=== PATIENT | male | born 1955 | race Caucasian/White ===

== ENCOUNTER 2017-07-09 14:06 | Inpatient (IN) | payer MEDICARE ==
[~2017-07-09 14:06] MED LIST: ISOVUE-370 76%-LOCM 1 ML ONE
--- NOTE | 2017-07-09 14:21 | CT ---
CT BRAIN: Date: 07/09/17 HISTORY: Slurred speech. FINDINGS: Noncontrast enhanced CT images of the brain obtained. The brain is unremarkable. No evidence of intra cranial masses, hemorrhages, strokes, or contusions seen. Ventricles are of normal size. IMPRESSION: Normal CT brain. Findings discussed with Dr. Schulz at 1416 hours on 07/09/17. CODE CR. POS: [facility]
[2017-07-09 14:26] LABS: #Basophils 0.1 thou/uL (0.0-0.2); #Eosinphils 0.1 thou/uL (0.0-0.7); #Lymphocytes 3.1 thou/uL (1.20-3.40); #Monocytes 0.7 thou/uL (0.11-0.59); #Neutrophils 5.3 thou/uL (1.40-6.50); %Basophils 0.8 % (0.0-1.0); %Eosinophils 0.5 % (0.0-10.0); %Lymphocytes 33.7 % (21.0-51.0); %Monocytes 7.2 % (0.0-10.0); Hematocrit 44.2 % (42.0-52.0); Red Blood Cell (RBC) Count 4.98 mill/uL (4.70-6.10); White Blood Cell (WBC) Count 9.2 thou/uL (4.8-10.8)
[2017-07-09 14:32] LABS: Prothrombin Time 20.5 SEC (12.0-14.7)
[2017-07-09 14:33] LABS: PTT 38.3 SEC (22.9-36.1)
[2017-07-09 14:38] LABS: ALT (SGPT) 9 U/L (8-55); AST (SGOT) 10 U/L (5-34); Alkaline Phosphatase 61 U/L (40-150); Anion Gap 13 mmol/L (10-20); BUN (Urea Nitrogen) 8 mg/dL (8.4-25.7); Bilirubin, Total 0.2 mg/dL (0.2-1.2); Calc. Creatinine Clearance 0 mL/min (70-130); Calcium 9.8 mg/dL (7.8-10.44); Carbon Dioxide 25 mmol/L (23-31); Chloride 104 mmol/L (98-107); Estimated GFR-MDRD Greater than 90; Globulin 2.8 g/dL (2.4-3.5); Protein, Total 6.8 g/dL (5.8-8.1)
[2017-07-09 14:42] LABS: Troponin I 0.012 ng/mL (< 0.028)
--- NOTE | 2017-07-09 15:00 | CT ---
CONTRAST ENHANCED CA CAROTID ARTERIES AND INTRACRANIAL CTA WITH BRAIN PERFUSION STUDY DATED 07/09/17. FINDINGS: Contrast-enhanced CTA is performed. Two-D and 3D reconstructed images performed on an independent 3D work station. The aortic arch demonstrates calcifications of the aorta. The right brachiocephalic artery is patent . The right and left subclavian arteries are patent. The right and left vertebral arteries are monteiro nt. The right and left common carotid arteries are patent. Some mild atherosclerotic plaque is seen in t he distal right and left CCA extending to the right and left ICA resulting in minimal approximately 1 5-20% bilateral ICA stenosis. More distally, the right and left internal carotid arteries are patent . Normal flow is seen in the STERLING, MCA, and BRIM PRESSER vessels. Brain perfusion imaging demonstrates no evidence of areas of increased mean transit time. No signifi cant evidence of brain perfusion abnormality seen. IMPRESSION: Normal CTA carotid, intracranial CTA, and brain perfusion evaluation. POS: [facility]
--- NOTE | 2017-07-09 16:51 | PDOC.EVN ---
Attending Addendum - Attending Addendum I personally evaluated the patient and discussed the management with Dr. Christensen. I agree with the History, Examination, Assessment and Plan documented in his H& P with any addition or exceptions noted below. Patient is 62 yo gentleman with HTN, PVD, and unspecified cardiomyopathy p/w difficulty with speech production and slurring of speech that began sometime this morning. His symptoms have improved somewhat, and he denies other focal neuro symptoms such as sensory loss, weakness, vertigo, headache. He has been admitted for possible TIA versus stroke. Patient had negative CT brain, and CTA with perfusion does not suggest area of decreased/absent perfusion. He is not a candidate due to AICD placement. He is typically on Xarelto. We will admit to stroke unit, consult stroke team, bedside swallow eval, and therapy consults. Consult Neurology as this is first episode of possible ischemic damage. Allow permissive HTN overnight but will continue Diltiazem due to his history of abormal heart rhythms. Will obtain labs to further risk stratify patient and adjust meds as necessary. Obtain echo and monitor on tele.
[2017-07-09] MEDS ORDERED: Ondansetron ODT 4 MG TAB PO PRN (16:59)
[2017-07-09] MEDS ORDERED: Acetaminophen 650 MG Suppository PR PRN (16:59)
[2017-07-09] MEDS ORDERED: Acetaminophen 325 MG TAB PO PRN (16:59)
[2017-07-09] MEDS ORDERED: Labetalol HCl 100 MG/20 ML VIAL SLOW IVP PRN (16:59)
[2017-07-09] MEDS ORDERED: Ondansetron HCl/PF 4 MG/2 ML Vial IVP PRN (16:59)
[2017-07-09] MEDS ORDERED: Calcium Carbonate 500 MG ChewTAB PO PRN (16:59)
[2017-07-09] MEDS ORDERED: hydrALAZINE 20 MG/ML VIAL SLOW IVP PRN (16:59)
[2017-07-09 17:36] VITALS: BMI 23.0
--- NOTE | 2017-07-09 18:30 | PDOC.PN ---
- Subjective Encounter Start Date: 07/09/17 Encounter Start Time: 18:28 Subjective: seen and examined-no new complaint - Objective Vital Signs & Weight: Vital Signs (12 hours) Temp Pulse Resp BP Pulse Ox 07/09/17 17:00 97.9 F 75 18 158/80 H 98 Weight Weight 165 lb 5 oz Result Diagrams: 07/09/17 14:14 07/09/17 14:14 Phys Exam - Physical Examination Constitutional: NAD HEENT: PERRLA, moist MMs, sclera anicteric, TM's clear, oral pharynx no lesions Neck: no nodes, no JVD, supple, full ROM Respiratory: no wheezing, no rales, no rhonchi Cardiovascular: RRR, no significant murmur, no rub Gastrointestinal: soft, non-tender, no distention, positive bowel sounds Dx/Plan (1) TIA (transient ischemic attack) Status: Acute (2) Hypertension Code(s): I10 - ESSENTIAL (PRIMARY) HYPERTENSION Status: Acute (3) S/P implantation of automatic cardioverter/defibrillator (AICD) Code(s): Z95.810 - PRESENCE OF AUTOMATIC (IMPLANTABLE) CARDIAC DEFIBRILLATOR Status: Acute - Plan PT/OT, social media content manager follow up Echo -: Awaiting Neurology input -: Rehab screening in progress * .
[2017-07-09] MEDS: Aspirin 81 mg Enteric Coated Tablet PO SCH ×2 (19:20→20:54)
[2017-07-09] MEDS: Gabapentin 300 MG CAP PO SCH (20:55)
[2017-07-09] MEDS: HYDROcodone/Acetaminophen 10/325 mg Tablet PO PRN (20:56)
[2017-07-09] MEDS ORDERED: Atorvastatin Calcium 10 MG TAB PO SCH (21:00)
[2017-07-09] MEDS ORDERED: FLU VACC QS2017-18 36 mo. & older 0.5 ML SYRINGE IM ONE (21:00)
[2017-07-09] MEDS ORDERED: Temazepam 15 MG CAP PO SCH (21:00)
[2017-07-10 05:33] LABS: Anion Gap 12 mmol/L (10-20); BUN (Urea Nitrogen) 9 mg/dL (8.4-25.7); Calc. Creatinine Clearance 98 mL/min (70-130); Calcium 9.7 mg/dL (7.8-10.44); Carbon Dioxide 28 mmol/L (23-31); Chloride 103 mmol/L (98-107); Cholesterol 127 mg/dl (< 200 Desired); Estimated GFR-MDRD Greater than 90; LDL Cholesterol, Calculated 71 mg/dL
--- NOTE | 2017-07-10 06:05 | HP-2 ---
CODE STATUS: Full. PRIMARY CARE PHYSICIAN: Katja marcus. ATTENDING PHYSICIAN: Dr. Blanton. RESIDENT: Dr. Christensen. HISTORIAN: The and patient. CHIEF COMPLAINT: Slurred speech and difficulty finding speech. HISTORY OF PRESENT ILLNESS: This is a 62-year-old male that came in with a chief complaint mainly by having slurred speech and not been able to find words. He said he was on his way to the cardiology appointment around 10:00. When he was talking to his on the phone, his noted slurred speech. 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 He came home around 12:31 and could not find words, could not speak. This time, they called the ambulance and at that time they sent him here to the ER. He denies any chest pain, shortness of breath, dizziness, headaches, changes in vision, changes in hearing, any numbness, tingling, weakness in the arms, face or legs. His said she called the pets salesperson and talked to the nurse. She said she did not notice anything and talked to the doctor and thought that he was a little bit slow talking, but did not notice anything too abnormal. The only other thing he says the last couple of weeks he felt dizzy. He has had an echo 6 months ago with an ejection fraction of 25%. He denied any fever, chills, recent illness or any recent like infection. On asking the how he was doing here in the ER when I saw him, she said that his speech drastically improved, but thought it was still maybe a little slow and a little slurred. He was able to form sentences. REVIEW OF SYSTEMS: All review of systems not listed in the HPI, otherwise negative at this time. PAST MEDICAL HISTORY: Cardiomyopathy, peripheral vascular disease, history of atrial fibrillation with an automatic implantable cardioverter-defibrillator and hypertension. PAST SURGICAL HISTORY: He has had PTIA, fem-pops, and had a left leg amputation. ALLERGIES: MORPHINE. MEDICATIONS: 1. Diltiazem 90 mg 1 tab a day. 2. Diclofenac 75 mg 1 tab. 3. Prevacid 30 mg once a day. 4. KCl 20 mEq times once a day, 5. Furosemide 40 mg b.i.d. 6. Coreg 25 mg b.i.d. 7. Coreg 12.5 mg b.i.d 8. Neurontin 300 mg b.i.d. 9. Xarelto 20 mg. 10. Celexa 20 mg. 11. Simvastatin 40 mg 1-1/2 tabs. 12. Temazepam 30 mg. 13. Percocet 10/325. SOCIAL HISTORY: He quit 8 months ago, but smokes off and on 1 per day for over 40+ years. No alcohol use. No drug use. PHYSICAL EXAMINATION: VITAL SIGNS: His blood pressure is 144/86, pulse is 70 and respirations are 13. There, he did not have a temperature and pulse ox currently was 76.2 kilograms. GENERAL: He is alert and oriented x3, well-developed, well-nourished and appropriately interactive. EYES: PERRLA. Conjunctivae within normal limits. ENT: Oropharynx within normal limit. NECK: Supple. No lymphadenopathy, no thyromegaly, no bruits. CARDIOVASCULAR: Regular rate and rhythm. No murmurs, no gallops. Radial pulses palpated, but unable to palpate pedal pulse in his right leg. RESPIRATORY: He has normal breathing effort. No retractions, but has prominent rales and wheezes in all lobes bilaterally. SKIN: Warm and dry. No lesions noted. ABDOMEN: Soft and nontender to palpation. Bowel sounds in all 4 quadrants. No masses or distention. MUSCULOSKELETAL: Structure within normal limit. Muscle strength is 5/5 in his arms and his right leg. He has full range of motion. No musculoskeletal deficit noted. NEUROLOGIC: Only focal deficit noted. His speech is a little slurred and maybe a little slow. Sensation is within normal limits. Cranial nerves II-XII are grossly intact. PSYCHIATRIC: Appropriate. LABORATORY DATA: White blood cell count 9.2, hemoglobin 14.4 and hematocrit 44.2 and MCV 88.8. Glucose is 180, sodium was 138, potassium 3.8, chloride 104 , carbon dioxide 25, BUN was 8, creatinine was 0.84, glucose 106, calcium is 9.8 , total protein 6.9, albumin 4.0, direct bilirubin 0.2, total bilirubin 0.2, AST 10, ALT 9, alkaline phosphatase 61, PT was 20.5m INR was 1.7 and aPTT was 38.3. IMAGING DATA: Brain CT was normal. Brain CT of the head and neck with brain perfusion showed normal CTA carotid, no acute infarction, and brain perfusion evaluation was normal. ASSESSMENT AND PLAN: 1. Transient ischemic attack versus stroke. We will admit him to the stroke unit. We will consult stroke team and Neurology and we will follow Neurology's recommendations. We will allow permissive hypertension. He is not on a high dose statin. We want to increase his statin to high dose. We will start him on aspirin. We are holding the Xarelto to prevent any bleed risk. If he does have a stroke, we will keep him n.p.o. until Speech evaluates him and gets a swallow because of his slurred speech. We will get PT, OT, and speech to evaluate and treat him accordingly. We will also check B12, folate and TSH and I am going to check a fasting lipid panel. 2. Cardiomyopathy with a reported ejection fraction of 25%. We will repeat an echo. He has an automatic implantable cardioverter-defibrillator in place. 3. Hypertension. We will continue diltiazem, but hold the rest of his blood pressure medicines to allow for permissive hypertension at this time. 4. Peripheral vascular disease. We will increase his statin to a high dose statin as this will help as he is on aspirin. We will continue Xarelto after 24 hours once he is out of the bleed risk window with the transient ischemic attack. 5. Hx A.fib w/ AICD in place. Will continue his diltiazem for rate control. Currently being paced in normal rhythm. will place him on Tele monitoring. 6. Tobacco abuse. We will classification counselor him on quitting. 7. Deep venous thrombosis prophylaxis. We will put him on Lovenox. ARMANDD
[2017-07-10] MEDS: HYDROcodone/Acetaminophen 10/325 mg Tablet PO PRN (07:23)
[2017-07-10] MEDS ORDERED: Potassium Chloride 20 MEQ TAB PO SCH (08:00)
[2017-07-10 08:25] VITALS: TEMP 98
--- NOTE | 2017-07-10 08:39 | CON ---
DATE OF CONSULTATION: 07/10/2017 CONSULTING PHYSICIAN: [facility]. IMPRESSION: 1. Transient ischemic attack, on maximum medical therapy. 2. History of congestive heart failure with ejection fraction of 25%. 3. Peripheral vascular disease, status post left above knee amputation. 4. History of atrial fibrillation. 5. Hypertension. PLAN: 1. Continue anticoagulation and statin. 2. Patient can be discharged home. HISTORY OF PRESENT ILLNESS: Mr. Bryant is a 62-year-old gentleman with above-noted medical problems. 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 He cont inued to have symptoms and told his about it. She is a nurse, and she brought him into the hosp ital for evaluation. He had a CTA, which did not show any evidence of any major vessel stenosis. Th ere was no evidence of ischemia visible on CT scan. His symptoms resolved sometime following this; h e is uncertain as to the duration of his symptoms. There was no associated lateralized weakness or n umbness. PAST MEDICAL HISTORY: As listed above. ALLERGIES: MORPHINE. MEDICATIONS: List was reviewed. SOCIAL HISTORY: He is and he has no tobacco or alcohol use. FAMILY HISTORY: Noncontributory. REVIEW OF SYSTEMS: No complaint of headache, nausea, vomiting, vertigo, chest pain, shortness of matt ath. PHYSICAL EXAMINATION: VITAL SIGNS: Blood pressure 163/83, pulse 72, respirations 16, he is afebrile. HEENT: Pupils are equal, round, and reactive. Conjunctivae clear. Oropharynx clear. NECK: Supple. EXTREMITIES: No cyanosis. NEUROLOGIC EXAM: He is alert and appropriate. His speech is fluent and clear. His exam is nonfocal . IMAGING: Reviewed. SUMMARY: This is an elderly gentleman with transient ischemic attack symptoms. He has previously akhtar d aspirin added to his regimen and there were problems with excessive bruisability. He is at risk of falling secondary to having to walk on crutches. I do not think I would add aspirin at this point. He seems comfortable with this plan. I will be happy to follow up with him as needed.
--- NOTE | 2017-07-10 08:40 | PDOC.FM ---
- Subjective Subjective: Pt reports doing much better this morning. Only thing is overnight he had a brief episode where he had a hard time finding words. Nurse says it only lasted a few minutes. Other than that denies any other acute events. Denies any numbness or tingling. Denies any weakness. Denies any chest pain or SOB - Objective MAR Reviewed: Yes Vital Signs & Weight: Vital Signs (12 hours) Temp Pulse Resp BP Pulse Ox 07/10/17 07:20 98 F 75 18 157/78 H 96 07/10/17 03:40 98.3 F 72 16 163/83 H 95 07/09/17 23:33 97.4 F L 70 16 111/61 96 Weight Weight 74.984 kg I&O: 07/09/17 07/10/17 07/11/17 06:59 06:59 06:59 Intake Total 240 Output Total 400 Balance -160 Result Diagrams: 07/09/17 14:14 07/10/17 04:49 Radiology Reviewed by me: Yes Radiology: CT Head: Negative CTA Head and Neck w/ Brain Perfusion: No abnormality seen in ICA or no area of decreased perfusion in brain <Mitchell Christensen - Last Filed: 07/10/17 08:38> - Objective Vital Signs & Weight: Vital Signs (12 hours) Temp Pulse Pulse Pulse Resp BP BP 07/10/17 09:30 72 93 151/79 H 142/91 H 07/10/17 08:10 98 F 75 18 07/10/17 07:59 81 74 156/87 H 174/90 H 07/10/17 07:20 98 F 75 18 07/10/17 03:40 98.3 F 72 16 BP Pulse Ox 07/10/17 09:30 07/10/17 08:10 96 07/10/17 07:59 07/10/17 07:20 157/78 H 96 07/10/17 03:40 163/83 H 95 Weight Weight 74.984 kg I&O: 07/09/17 07/10/17 07/11/17 06:59 06:59 06:59 Intake Total 240 Output Total 400 Balance -160 Result Diagrams: 07/09/17 14:14 07/10/17 04:49 <Davi Blanton - Last Filed: 07/10/17 12:04> Phys Exam - Physical Examination HEENT: moist MMs, oral pharynx no lesions Neck: no nodes, no JVD, supple, full ROM Respiratory: no rhonchi, wheezing present Rales present Cardiovascular: RRR, no significant murmur, no rub Gastrointestinal: soft, positive bowel sounds Musculoskeletal: no edema, pulses present Neurological: non-focal, normal sensation, moves all 4 limbs Speech non slurred. no delay in finding words Lymphatic: no nodes Psychiatric: normal affect, A&O x 3 Skin: no rash, normal turgor, cap refill <2 seconds <Mitchell Christensen - Last Filed: 07/10/17 08:38> Dx/Plan (1) TIA (transient ischemic attack) Status: Acute (2) Paroxysmal A-fib Code(s): I48.0 - PAROXYSMAL ATRIAL FIBRILLATION Status: Acute (3) Cardiomyopathy Code(s): I42.9 - CARDIOMYOPATHY, UNSPECIFIED Status: Acute (4) PVD (peripheral vascular disease) Code(s): I73.9 - PERIPHERAL VASCULAR DISEASE, UNSPECIFIED Status: Acute (5) Hypertension Code(s): I10 - ESSENTIAL (PRIMARY) HYPERTENSION Status: Acute - Plan Plan: TIA vs Stroke -More likely TIA as sx's have resolved this morning. No abnormality seen on imaging. Can't get MRI due to pacemaker -Started on aspirin currently. Will restart xarelto on discharge. -Will increase statin dose as he was on low dose. -Folate borderline low. May need to supplement -FLP and TSH normal -Awaiting ECHO results today. -Speech consulted-will await assessment and recs hx A.fib W. AICD in place -On tele monitoring. Currently paced in 70. RRR -Will continue to monitor -Continue home meds Cardiomyopathy -Worked up with cardiology in [place]. -Will get ECHO today to have on records and assess for any abnormality PVD -Will restart xarelto on discharge. -Continue home meds -Increase dose of statin HTN -Allowed permissvie HTN yesterday. -Will restart medications this morning <Mitchell Christensen - Last Filed: 07/10/17 08:38> Attending Addendum - Attending Addendum I personally evaluated the patient and discussed the management with Dr. Christensen. I agree with the History, Examination, Assessment and Plan documented above with any addition or exceptions noted below. Patient with resolution of symptoms. Neuro has seen patient and ok with discharge on increased statin therapy. He will need neuro follow up in outpatient setting. His BP is stable and he feels well. Awaiting PT/OT recs and will likely discharge home later today. <Davi Blanton - Last Filed: 07/10/17 12:04>
[2017-07-10] MEDS: Gabapentin 300 MG CAP PO SCH (08:54)
[2017-07-10] MEDS ORDERED: Docusate 100 MG CAP PO SCH (09:00)
[2017-07-10] MEDS ORDERED: Carvedilol 25 MG TAB PO SCH (09:00)
[2017-07-10] MEDS ORDERED: Enoxaparin Sodium 30 MG/0.3 ML SYRINGE SC SCH (09:00)
[2017-07-10] MEDS ORDERED: Furosemide 40 MG TAB PO SCH (09:00)
[2017-07-10] MEDS ORDERED: Diltiazem HCl SR 90 mg Capsule PO SCH (09:00)
[2017-07-10] MEDS ORDERED: Citalopram 20 MG TAB PO SCH (09:00)
[2017-07-10] MEDS ORDERED: Multivitamin W/ Minerals 1 TAB PO SCH (09:00)
[2017-07-10 10:26] VITALS: BP 151/79
[2017-07-10] MEDS ORDERED: Atorvastatin Calcium 40 MG TAB PO SCH (21:00)
--- NOTE | 2017-07-11 01:37 | DIS-2 ---
DATE OF ADMISSION: 07/09/2017 DATE OF DISCHARGE: 07/10/2017 ATTENDING: Dr. Blanton. RESIDENT: Mitchell Christensen, PGY-1. CONSULTATIONS: Neurology, Dr. Jefferson Draper. He had a brain CT, which was normal brain CT. He had a head and neck CTA with brain perfusion, which showed normal CTA of the carotid intracranial CTA and brain perfusion evaluation. He also had an ec hocardiogram, which showed ejection fraction of 50%-55%, normal sized left atrium, left ventricle siz e is normal. Impaired relaxation compatible with diastolic dysfunction reversed E/A ratio and mild m itral regurgitation. Pacer wire visualized in right ventricle and no thrombus is noted in the cardia c chambers. PRIMARY DIAGNOSES: 1. Transient ischemic attack with dysarthria and slurred speech. 2. Cardiomyopathy with a new reported ejection fraction of 50%-55%, diastolic heart failure. 3. Hypertension. 4. Peripheral vascular disease. DISCONTINUED: No medicines were discontinued. DISCHARGE MEDICATIONS: Carvedilol 25 mg p.o. b.i.d., citalopram 20 mg p.o. daily, diclofenac 75 mg p .o. daily, diltiazem 90 mg p.o. daily, docusate sodium 100 mg p.o. daily, furosemide 40 mg p.o. b.i.d ., gabapentin 300 mg p.o. b.i.d., hydrocodone 2 mg p.o. q.i.d., lansoprazole 30 mg p.o. daily, Centr um Silver tablet one each p.o. daily, K-Dur 20 mEq p.o. daily, rivaroxaban 15 mg p.o. daily, simvasta tin 20 mg p.o. at bedtime, temazepam 30 mg p.o. at bedtime. BRIEF HOSPITAL COURSE: This is a 62-year-old male that yesterday came in around after 10:00 started having slurred speech, came home from a doctor's appointment on 07/19/2017, in which they did not not ice anything but could not speak, could not find his words in the speech. He came in, once he was se en in the ER, his symptoms were getting better, but his speech was still a little slow, still little slurred. He got a CT head, which was read above and a CTA with brain perfusion, which was read above . We could not get an MRI, as he has an ICD in place. He denied any numbness, tingling, weakness. Denied any other symptoms other than the speech. He would then get assessed by Speech Therapy, who w emi say that he was able to swallow with sort of diet and had no problems. He had PT and OT assessm ent, which was able to get up and move around. He would continue to improve in the next day, his spe ech was fine, was not slurred at all, but had to have no trouble finding words. We did get a repeat echo showed an ejection fraction improved at 50%-55%. We thought that maybe he needed to be on a hig her dose statin. We started him on high dose statin here, but after talking with him, there was a re ason why he was on the low-dose simvastatin. I told him to follow up with Cardiology and tell him th at it was recommended that maybe he get a higher dose of statin. During this time, we discharged him and diagnosed him with a CTA with TIA as symptoms then resolved told him to follow up with his cardi ologist and follow up with his primary care doctor. DISPOSITION: Stable. DISCHARGE INSTRUCTIONS: 1. Location: Home. 2. Activity: As tolerated. 3. Diet: Heart healthy diet. 4. Followup: We will need to follow up with primary care provider within 14 days for [facility] appointment will need to follow up with Neurology within a month just for followup.
== END 2017-07-10 14:00 | disposition home or self-care (01) | DRG 69 ==
LOC: ERS 14:06 → EDBD 16:05 → 2SE 16:05 → OBSVTOIN 16:59
PROVIDERS: ADMIT Student in an Organized Health Care Education/Training Program; ATTEND Student in an Organized Health Care Education/Training Program
DX: G45.9 Transient cerebral ischemic attack, unspecified (principal); I42.9 Cardiomyopathy, unspecified; I11.0 Hypertensive heart disease with heart failure; I50.9 Heart failure, unspecified; R47.81 Slurred speech; I73.9 Peripheral vascular disease, unspecified; Z95.810 Presence of automatic (implantable) cardiac defibrillator; F17.210 Nicotine dependence, cigarettes, uncomplicated
CPT/HCPCS: 0042T; 36415; 36416; 70450; 70496; 70498; 80048; 80053; 80061; 82553; 82607; 82746; 84443; 84484; 85025; 85610; 85730; 90471; 90682; 93005; 93306; G0008; G8978-GP-CI; G8979-GP-CI; G8980-GP-CI; G8987-GO-CH; G8988-GO-CH; G8989-GO-CH; G8996-GN-CH; G8997-GN-CH; J1650; Q2036

== ENCOUNTER 2017-10-12 17:48 | Emergency (ER) | payer MEDICARE ==
[2017-10-12] MEDS ORDERED: Fentanyl 100 MCG/2 ML VIAL ONE (19:41)
[2017-10-12] MEDS ORDERED: Bupivacaine 0.5% 10 ML VIAL ONE (19:49)
[2017-10-12] MEDS ORDERED: Lidocaine 1% (PF) 30 ML VIAL ONE (19:49)
[2017-10-12] MEDS ORDERED: HYDROmorphone 0.5 MG/0.5 ML SYRINGE ONE (21:05)
--- NOTE | 2017-10-12 21:10 | RAD ---
TWO VIEWS RIGHT ELBOW: History: Fall on right elbow with pain. FINDINGS: Two views of the right elbow shows a fracture of the olecranon of the proximal ulna with surrounding soft tissue swelling. A small elbow effusion is seen. No dislocation is present. IMPRESSION: Proximal olecranon fracture of the ulna. POS: [facility]
--- NOTE | 2017-10-12 21:14 | RAD ---
THREE VIEWS RIGHT SHOULDER: Comparison: None. History: Right shoulder and elbow pain after losing balance and falling on the right arm. FINDINGS: Three views of the right shoulder shows no evidence of acute fracture or dislocation. The visualized right thorax is unremarkable. Soft tissue swelling is seen. No degenerative changes are present. IMPRESSION: No evidence of acute osseous abnormality. POS: [facility]
[2017-10-12] MEDS ORDERED: HYDROcodone/Acetaminophen 5/325 mg Tablet ONE (22:11)
== END 2017-10-12 22:30 | disposition home or self-care (01) ==
LOC: ERS 17:48
DX: S52.021A Displaced fracture of olecranon process without intraarticular extension of right ulna, initial encounter for closed fracture (principal); E78.00 Pure hypercholesterolemia, unspecified; F32.9 Major depressive disorder, single episode, unspecified; Z87.891 Personal history of nicotine dependence; Z79.899 Other long term (current) drug therapy; W19.XXXA Unspecified fall, initial encounter
CPT/HCPCS: 20552; 24675; 96374; 96375; J1170; J2001; J3010; J3490

== ENCOUNTER 2017-10-15 12:24 | Outpatient (CLI) | payer MEDICARE ==
[2017-10-15 13:57] LABS: Hemoglobin 8.4 g/dL (14.0-18.0); Mean Corpuscular HGB CONC 31.1 g/dL (32.0-36.0); Mean Corpuscular Hemoglobin 25.8 pg (27.0-31.0); Mean Platelet Volume 7.3 fL (7.4-10.4); Platelet Count 329 thou/uL (130-400); RBC Distribution Width 16.6 % (11.5-14.5); Red Blood Cell (RBC) Count 3.25 mill/uL (4.70-6.10); White Blood Cell (WBC) Count 8.1 thou/uL (4.8-10.8)
[2017-10-15 14:15] LABS: Anion Gap 11 mmol/L (10-20); BUN (Urea Nitrogen) 17 mg/dL (8.4-25.7); Calc. Creatinine Clearance 0 mL/min (70-130); Calcium 8.9 mg/dL (7.8-10.44); Carbon Dioxide 24 mmol/L (23-31); Chloride 101 mmol/L (98-107); Estimated GFR-MDRD 39; Glucose 109 mg/dL (80-115); Potassium 4.4 mmol/L (3.5-5.1); Sodium 132 mmol/L (136-145)
[2017-10-15 14:21] LABS: INR-International Normal Ratio 1.1; PTT 33.8 SEC (22.9-36.1); Prothrombin Time 14.6 SEC (12.0-14.7)
--- NOTE | 2017-10-28 22:52 | EKG ---
Test Reason : Blood Pressure : / mmHG Vent. Rate : 070 BPM Atrial Rate : 070 BPM P-R Int : 184 ms QRS Dur : 134 ms QT Int : 454 ms P-R-T Axes : 112 -04 116 degrees QTc Int : 490 ms Poor data quality, interpretation may be adversely affected AV sequential or dual chamber electronic pacemaker When compared with ECG of 09-JUL-2017 14:52, No significant change was found Confirmed by Ofelia MARISCAL ([id number]) on 10/28/2017 10:52:09 PM Referred By: DHIRAJ Confirmed By:Ofelia MARISCAL
== END 2017-10-15 12:25 | disposition home or self-care (01) ==
LOC: LABBT 12:24
PROVIDERS: ATTEND Orthopaedic Surgery
DX: Z01.818 Encounter for other preprocedural examination (principal); S52.021A Displaced fracture of olecranon process without intraarticular extension of right ulna, initial encounter for closed fracture
CPT/HCPCS: 80048; 85027; 85610; 85730; 93005; 93010

== ENCOUNTER → 2017-10-16 | Day surgery (SDC) | payer MEDICARE ==
[2017-10-15 12:44] VITALS: BMI 24.4
[~2017-10-16] MED LIST changes: +Bupivacaine 0.25% HCL 30 ML VIAL ONE; +CEFAZOLIN/Water 2 GM/20 ML SYRINGE ONE; +Dexamethasone 20 MG/5 ML VIAL ONE; +Fentanyl 100 MCG/2 ML VIAL ONE; +Glycopyrrolate 0.2 MG/ML 5 ML SYRINGE ONE; -ISOVUE-370 76%-LOCM 1 ML ONE; +Lidocaine 1% (PF) 30 ML VIAL ONE; +Lidocaine 1% PF 5 ML VIAL ONE; +Ondansetron HCl/PF 4 MG/2 ML Vial ONE; +PROPOFOL 200 MG/20 ML VIAL ONE
--- NOTE | 2017-10-16 11:37 | RAD ---
RIGHT ELBOW 2 VIEWS: Date: 10/16/17 HISTORY: Right elbow olecranon fracture. COMPARISON: 10/12/17. FINDINGS: Intraoperative fluoroscopy was provided for Dr. Richards. There is evidence of internal fixation hard villalta projecting over the proximal ulna/olecranon. Fracture lucency is identified. Alignment is near a natomic. Exposure: 3 seconds. 0.11 mGy*cm^2. IMPRESSION: Fluoroscopy as above. POS: [facility]
--- NOTE | 2017-10-19 08:22 | OP ---
DATE OF PROCEDURE: 10/16/2017 PREOPERATIVE DIAGNOSIS: Closed right olecranon fracture. POSTOPERATIVE DIAGNOSIS: Closed right olecranon fracture. SURGICAL PROCEDURE: Open reduction internal fixation, right olecranon. ANESTHESIA: General. SURGEON: Darvin Richards M.D. TOURNIQUET TIME: Zero. BLOOD LOSS: Less than 20 mL. IMPLANTS: Synthes small fragment hook plate with 3.5 mm cortical screws. COMPLICATIONS: None. DRAINS: None. SPECIMEN: None. OUTCOME: Satisfactory. INDICATIONS: The patient is a 62-year-old gentleman, status post fall sustaining a right olecranon f racture. After discussion with patient including risks and benefits, we decided to proceed with open reduction and internal fixation. Informed consent has been obtained. I believe all questions have been answered. PROCEDURE: The patient was brought to the operating room and a timeout performed followed by inducti on of general anesthesia. Next, the patient was positioned in a left lateral decubitus position with the right arm draped over a bolster. A sterile prep and drape was then performed. Next, a longitud inal incision was made centered over the olecranon. After skin was sharply incised, dissection was c arried down bluntly to expose the fractured olecranon and fracture gap. The hematoma was removed fro m the wound and then a periosteal elevator was used to just elevate the periosteum from around the fr acture edges. This was then followed by irrigation of the wound to further clear hematoma and some s mall bony debris from the wound. The fracture was then reduced and held in place with a bone tenacul um. Next, a 3.5 mm Synthes small fragment hook plate was applied to the posterior aspect of the olec ranon. This was held in place provisionally with a 3.5 mm cortical screw distal to the fracture frag ment in the elongated hole of the plate. Next, an oblique fracture was passed from the tip of the ol ecranon through the plate across the fracture and into the anterior cortex of the proximal ulna. As this compressed the fracture also compressed, once appropriately aligned the first plate screw was th en completely tightened to lock the plate in place. This was followed by insertion of a second corti vic screw at the most distal hole. Following this, AP, lateral C-arm images were obtained that showe d anatomic alignment of the fracture and appropriate positioning of the hardware. The wound was then irrigated with bulb syringe and then closed in layers with 0 Vicryl deep, followed by 2-0 Vicryl and 3-0 nylon for the skin. A Xeroform gauze, Webril, and fiberglass posterior splint was applied to th e arm and then patient was transferred to recovery room in stable condition. There were no complicat ions. He tolerated the procedure well.
== END ==
LOC: SDC 07:19
PROVIDERS: ATTEND Orthopaedic Surgery
PROC: 0PSK04Z Reposition Right Ulna with Internal Fixation Device, Open Approach (ICD-10-PCS; principal; 2017-10-16)
DX: S52.021A Displaced fracture of olecranon process without intraarticular extension of right ulna, initial encounter for closed fracture (principal); I42.9 Cardiomyopathy, unspecified; I73.9 Peripheral vascular disease, unspecified; I48.91 Unspecified atrial fibrillation; I10 Essential (primary) hypertension; Z88.5 Allergy status to narcotic agent; Z95.810 Presence of automatic (implantable) cardiac defibrillator; Z98.890 Other specified postprocedural states
CPT/HCPCS: 24685; 73070; 76000; 96374; C1713; J1100; J2001; J2405; J2704; J3010; S0020

== ENCOUNTER 2018-04-20 17:04 | Inpatient (IN) | payer MEDICARE ==
[2018-04-20 18:11] LABS: Hemoglobin 2.7 g/dL (14.0-18.0); Mean Corpuscular HGB CONC 26.7 g/dL (32.0-36.0); Mean Corpuscular Hemoglobin 13.9 pg (27.0-31.0); Mean Corpuscular Volume 52.1 fL (78.0-98.0); Mean Platelet Volume 5.9 fL (7.4-10.4); Platelet Count 217 thou/uL (130-400); RBC Distribution Width 19.3 % (11.5-14.5); Red Blood Cell (RBC) Count 1.92 mill/uL (4.70-6.10); White Blood Cell (WBC) Count 6.2 thou/uL (4.8-10.8)
[2018-04-20 18:16] LABS: INR-International Normal Ratio 3.3; Prothrombin Time 33.6 SEC (12.0-14.7)
[2018-04-20 18:17] LABS: PTT 52.9 SEC (22.9-36.1)
[2018-04-20 18:19] LABS: Albumin 3.6 g/dL (3.4-4.8)
[2018-04-20 18:21] LABS: Calcium 8.9 mg/dL (7.8-10.44); Chloride 107 mmol/L (98-107); Potassium 4.1 mmol/L (3.5-5.1); Sodium 139 mmol/L (136-145)
[2018-04-20 18:22] LABS: Globulin 2.3 g/dL (2.4-3.5); Glucose 83 mg/dL (80-115); Protein, Total 5.9 g/dL (5.8-8.1)
[2018-04-20 18:23] LABS: Anion Gap 12 mmol/L (10-20); Carbon Dioxide 24 mmol/L (23-31)
[2018-04-20 18:24] LABS: Bilirubin, Total 0.4 mg/dL (0.2-1.2)
[2018-04-20 18:25] LABS: Alkaline Phosphatase 52 U/L (40-150); Calc. Creatinine Clearance 0 mL/min (70-130); Estimated GFR-MDRD 46
[2018-04-20 18:26] LABS: #Eosinphils 0.1 thou/uL (0.0-0.7); #Lymphocytes 2.2 thou/uL (1.20-3.40); #Monocytes 0.4 thou/uL (0.11-0.59); #Neutrophils 3.4 thou/uL (1.40-6.50); %Basophils 0.5 % (0.0-1.0); %Eosinophils 1.1 % (0.0-10.0); %Lymphocytes 36.1 % (21.0-51.0); %Monocytes 7.2 % (0.0-10.0); %Neutrophils 55.1 % (42.0-75.0); Anisocytosis MODERATE=16-30 cells (100X) (0-5/hpf); BUN (Urea Nitrogen) 26 mg/dL (8.4-25.7); Hypochromia MARKED = >30 cells (100X) (0-5/hpf); MDiff Complete? YES; Microcytosis MODERATE=15-30 cells (100X) (0-5/hpf); Ovalocytes SLIGHT = 2-5 cells (100X) (0-1/hpf); Poikilocytosis MODERATE=16-30 cells (100X) (0-5/hpf); Reflex for Review?? YES
[2018-04-20 18:27] LABS: AST (SGOT) 6 U/L (5-34)
[2018-04-20 18:28] LABS: ALT (SGPT) Less than 7 U/L (8-55)
[2018-04-20 18:31] LABS: CKMB 0.5 ng/mL (0-6.6); Troponin I Less than 0.010 ng/mL (< 0.028)
--- NOTE | 2018-04-20 18:33 | CT ---
HEAD CT WITHOUT CONTRAST: HISTORY: Stroke alert. Left eye symptoms x 2 days. Generalized weakness. COMPARISON: 10/12/17. FINDINGS: No parenchymal hemorrhage. No extraaxial hematoma. No midline shift. Basilar cisterns are patent. Age-appropriate brain volume. Cortical almeida-white matter differentiation is preserved. Ventricles and sulci are patent and symmetric. Calvarium is intact. Adequate aeration of the sinuses and mastoid air cells. Cavernous carotid athe rosclerosis is noted. Bilateral [place] and ocular lenses are noted and appropriately positioned. IMPRESSION: No acute intracranial process. Results of the study discussed with Vu Herring 04/20/18 at 5:25 p.m. CODE CR POS: [facility]
--- NOTE | 2018-04-20 18:53 | RAD ---
1 VIEW CHEST: Date: 04/20/18 HISTORY: Patient having weakness and left eye vision change. FINDINGS: Left-sided transvenous defibrillator with leads positioned in the right atrium, right ventricle, and coronary sinus. There is atherosclerosis of the aorta. Heart size is upper normal. Pulmonary vessels and hilum are normal. Costophrenic angles are clear. No mass. No consolidation. No pneumothorax or ac ron osseous abnormalities. IMPRESSION: Atherosclerosis. No acute cardiopulmonary process. POS: [facility]
[2018-04-20] MEDS ORDERED: Pantoprazole 40 MG VIAL ONE (18:58)
[2018-04-20 18:59] LABS: Reticulocyte Count 2.3 % (0.5-1.5)
[2018-04-20] MEDS ORDERED: PROTHROMBIN COMPLEX CONCENTRATE IV SCH (19:15)
[2018-04-20] MEDS ORDERED: Phytonadione 10 MG/ML AMP SLOW IVP SCH (19:15)
[2018-04-20] MEDS ORDERED: HYDROcodone/Acetaminophen 10/325 mg Tablet ONE (19:54)
[2018-04-20] MEDS ORDERED: Phytonadione 5 MG in Sodium Chloride 0.9% 50 ML IVPB SCH (20:00)
[2018-04-20] MEDS ORDERED: Ondansetron HCl/PF 4 MG/2 ML Vial IVP PRN (21:19)
[2018-04-20] MEDS ORDERED: Acetaminophen 325 MG TAB PO PRN (21:19)
[2018-04-20] MEDS ORDERED: Ondansetron ODT 4 MG TAB SL PRN (21:19)
[2018-04-20] MEDS: Pantoprazole 80 MG in Sodium Chloride 0.9% 100 ML IVP SCH (21:58)
[2018-04-20 23:17] LABS: Iron 155 ug/dL (65-175); Iron Binding Capacity, Total 398 mcg/dL (261-462)
[2018-04-20 23:45] LABS: Folate (Folic Acid) 16.4 ng/mL (7.0-31.4)
--- NOTE | 2018-04-21 00:59 | HP ---
CHIEF COMPLAINT: Bilateral upper extremity weakness, lower extremity weakness, and left blurry visio n. HISTORY OF PRESENT ILLNESS: This is a 63-year-old male with past medical history of hypertension; hy perlipidemia; peripheral vascular disease; atrial fibrillation with ejection fraction of 25%, status post AICD; history of retinal hemorrhages of the left eye, presenting with bilateral upper and lower extremity weakness and left eye blurry vision. 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 Patient states that he was so weak that he was not able to con trol his upper extremities. Therefore, patient called the and the told the patient to come home so that he can be able to call emergency and have the patient come to the hospital. Patient st ated that when the patient got out of his truck, he was not able to stand. Patient felt very, very w eak. Prior to patient's event of feeling very weak about 4 days prior, the patient stated that his l eft vision has become very blurry and he was losing his vision in the left eye. The patient states t hat in the past, he had had these symptoms in 2011, whereby he had atrial fibrillation and cardiomyop athy and during that time, he developed this blurred vision and he was not able to see from the left eye and he was seen by print shop chief clerk and numerous procedures were done to help improve the patient' s vision. Per the , the patient was doing much better until 4 days prior, that is why patient no luis that his vision has not been worse and now he is not able to see from the left eye. In addition to the patient's complaints, patient also states that he has been having black tarry stools. Patient is not able to tell how long this has been going on for, but on estimation, patient states that he h as been going on for approximately a month now. Patient denies any abdominal pain. Patient denies a ny fever, chest pain, shortness of breath, nausea, vomiting, or diarrhea. REVIEW OF SYSTEMS: Positive for left vision loss, weakness of the upper extremity and lower extremit y bilaterally, otherwise as documented in the HPI. All other systems are reviewed and are negative. PAST MEDICAL HISTORY: Significant for hyperlipidemia; peripheral vascular disease; atrial fibrillati on, ejection fraction of 25%, status post AICD; multiple compression fractures in patient's back due to osteoporosis; deafness; retinal hemorrhage of the left eye. PAST SURGICAL HISTORY: [id number] amputation to left leg, vascular surgery to right leg, multipl e back surgeries. FAMILY HISTORY: Reviewed and noncontributory to this visit. PSYCHIATRIC HISTORY: Depression. SOCIAL HISTORY: Patient is a former tobacco smoker, patient quit about 10 years ago. The patient de nies any illicit drug use. The patient states that he used to be a drinker, but quit years back. Aamir bean lives at home with who is a human resources project manager. ALLERGIES: MORPHINE. CURRENT MEDICATIONS: Patient is on; 1. [place]. 2. Centrum Silver. 3. Tamsulosin. 4. Celexa 20 mg. 5. Temazepam 30 mg. 6. Simvastatin 20 mg. 7. Diltiazem 90 mg. 8. Diclofenac 75 mg b.i.d. 9. Prevacid 30 mg daily. 10. Furosemide 40 mg b.i.d. 11. Potassium chloride 20 mEq. 12. Gabapentin 300 b.i.d. 13. Xarelto 20 mg daily. PHYSICAL EXAMINATION: VITAL SIGNS: Blood pressure is 99/38, heart rate is 74, respiratory rate of 16, temperature of 98.8, O2 sat of 100 on room air. GENERAL: The patient is alert, oriented x3, not in acute distress. Patient is speaking in full sent ences. HEENT: Normocephalic, atraumatic. Pupils are reactive to light on the right, but fixed and nonreact panchito to light on the left. There is some conjunctival hemorrhage noted in the left eye. Extraocular movements are intact. For years, patient has difficulty with hearing. NECK: Patient has normal neck. No JVD. Trachea is midline. Supple. LUNGS: The patient had some expiratory wheeze, otherwise has good air intake. CARDIOVASCULAR: Patient has systolic murmur that can be appreciated at the PMI and also the left landon rnal border. Regular rate and rhythm. ABDOMEN: Nontender, nondistended. Positive bowel sounds in all quadrants. No palpable masses. BACK: Denies any pain in the back. EXTREMITIES: Patient has 5/5 upper extremity strength. No edema noted. Lower extremity: Patient d id have trace edema at the ankle of the right leg, left AKA. Patient has good strength at the right lower extremity. NEUROLOGIC: Cranial nerves II through XII grossly intact. No neurologic deficits noted. SKIN: Patient has pale skin, warm, dry, and intact. PSYCHIATRIC: The patient is alert and oriented x3, normal affect, very pleasant. IMAGING: EKG paced rhythm. CT of the head is negative. No acute intracranial pathology noted. ED COURSE: In the ED, the patient received [place], vitamin K, and Protonix drip was started. LABORATORY DATA: WBC 6.2, RBC 1.92, hemoglobin 2.7, hematocrit is 10.0, MCV is 52.1, RDW is 19.3, pl atelet count is 217,000. PT is 33.6, INR is 3.3, PTT is 5.9. Sodium is 139, potassium is 4.9, chlor nisa is 107, carbon dioxide of 24, anion gap of 12, BUN is 26, creatinine is 1.52, AST 6, ALT less shannan n 7, alkaline phosphatase is 52. Lactate dehydrogenase is 106. Troponin is less than 0.010. ASSESSMENT AND PLAN: This is a 63-year-old male being admitted for anemia of acute blood loss, most likely due to gastrointestinal bleed. At this point, we have consulted guide foreign tour. We will follow up with their recommendations. We will make patient n.p.o. We have ordered for blood transfu marc. We will check patient's H&H in the morning. We have ordered anemia panel on initial labs. We will follow up on the results. 1. Left eye visual loss. We have consulted print shop chief clerk. We will follow up with Ophthalmology a nd follow with their recommendations in the morning. 2. Bilateral upper and lower extremity weakness, likely due to symptomatic anemia due to acute blood loss. At this point, the patient is feeling much better. We will monitor the patient. 3. Acute kidney injury likely due to prerenal in etiology. At this point, the patient's creatinine is 1.52. We will continue giving patient packed red blood cells and we have ordered for renal functi on test. We will follow up on these results, but we assume that is probably due to dehydration or vo lume loss. 4. History of atrial fibrillation. At this point, we will hold patient's Xarelto due to blood loss. 5. Hyperlipidemia. We will continue patient on current treatment. 6. History of peripheral vascular diseases. At this point, stable. Continue the patient on current medication. 7. Status post automated implantable cardioverter defibrillator. Stable. We will monitor the patie nt in the ICU. 8. History of compression fractures in the back. Currently, patient does not complain of any pain a t this time. We will give the patient his pain medication as needed. 9. Deep venous thrombosis and gastrointestinal prophylaxis. We will hold Xarelto. We will do seque ntial compression devices and we will give the patient Protonix drip due to possible gastrointestinal bleed. 10. This patient has been seen and examined by Dr. Rajesh Nam.
[2018-04-21 04:27] LABS: ALT (SGPT) Less than 7 U/L (8-55); AST (SGOT) 23 U/L (5-34); Albumin 3.2 g/dL (3.4-4.8); Alkaline Phosphatase 49 U/L (40-150); Anion Gap 13 mmol/L (10-20); BUN (Urea Nitrogen) 22 mg/dL (8.4-25.7); BUN/Creatinine Ratio 17.46; Bilirubin, Total 1.4 mg/dL (0.2-1.2); Calc. Creatinine Clearance 0 mL/min (70-130); Calcium 8.8 mg/dL (7.8-10.44); Carbon Dioxide 21 mmol/L (23-31); Chloride 111 mmol/L (98-107); Estimated GFR-MDRD 58; Globulin 2.3 g/dL (2.4-3.5); Glucose 81 mg/dL (80-115); Potassium 3.8 mmol/L (3.5-5.1); Protein, Total 5.5 g/dL (5.8-8.1); Sodium 141 mmol/L (136-145)
[2018-04-21 04:55] LABS: Hemoglobin 5.5 g/dL (14.0-18.0)
[2018-04-21 06:40] LABS: Anisocytosis MODERATE=16-30 cells (100X) (0-5/hpf); Band 8 % (5-11); Hypochromia MODERATE=16-30 cells (100X) (0-5/hpf); Lymphocytes 31 % (21-51); MDiff Complete? YES; Mean Corpuscular HGB CONC 31.2 g/dL (32.0-36.0); Mean Corpuscular Hemoglobin 20.1 pg (27.0-31.0); Mean Corpuscular Volume 64.5 fL (78.0-98.0); Mean Platelet Volume 6.3 fL (7.4-10.4); Monocytes 1 % (0-10); Neutrophil 60 % (42-75); Nucleated RBC 1 % (0); PLT Morphology Comment Appears Adequate; Platelet Count 192 thou/uL (130-400); RBC Distribution Width 30.4 % (11.5-14.5); Red Blood Cell (RBC) Count 2.74 mill/uL (4.70-6.10); White Blood Cell (WBC) Count 5.5 thou/uL (4.8-10.8)
[2018-04-21 07:16] VITALS: BMI 23.1
[2018-04-21] MEDS: Pantoprazole 80 MG in Sodium Chloride 0.9% 100 ML IVP SCH (09:26)
[2018-04-21] MEDS: HYDROcodone/Acetaminophen 10/325 mg Tablet PO PRN ×3 (11:36→22:02)
[2018-04-21 14:06] LABS: Hemoglobin 8.1 g/dL (14.0-18.0)
[2018-04-21] MEDS ORDERED: GoLYTELY 4,000 ml Bottle PO SCH (15:45)
--- NOTE | 2018-04-21 16:25 | PDOC.PN ---
- Subjective Encounter Start Date: 04/21/18 Encounter Start Time: 16:10 Subjective: f/u for GI bleed and severe acute blood loss anemia s/p 4u PRBC's -: Feels better overall. Xarelto chronically but now on hold. - Objective Resuscitation Status: Resuscitation Status FULL:Full Resuscitation MAR Reviewed: Yes Vital Signs & Weight: Vital Signs (12 hours) Temp Pulse Pulse Resp BP BP Pulse Ox 04/21/18 15:26 98.8 F 70 17 138/52 L 100 04/21/18 07:58 100 04/21/18 07:40 97.6 F 80 16 135/54 L 100 04/21/18 06:25 99.2 F 71 18 116/36 L 04/21/18 06:10 99.2 F 69 18 122/45 L 04/21/18 04:30 98.2 F 69 20 133/52 L 100 Weight Weight 161 lb 6.054 oz I&O: 04/20/18 04/21/18 04/22/18 06:59 06:59 06:59 Intake Total 425 0 Output Total 800 Balance -375 0 Result Diagrams: 04/21/18 13:51 04/21/18 03:46 Additional Labs: Accuchecks 04/20/18 17:09 POC Glucose 98 Laboratory Tests 04/20/18 04/20/18 04/20/18 17:54 17:54 17:54 Hgb 2.7 L* MCV 52.1 L PT 33.6 H INR 3.3 Creatinine 1.52 H Iron TIBC % Saturation Vitamin B12 Folate 04/20/18 04/20/18 04/21/18 22:44 22:44 03:46 Hgb 5.5 L* MCV 64.5 L PT INR Creatinine Iron 155 TIBC 398 % Saturation 39 Vitamin B12 687 Folate 16.40 Radiology Reviewed by me: Yes (CT brain - no acute process) EKG Reviewed by me: Yes (Tele - Paced) Phys Exam - Physical Examination Constitutional: NAD HEENT: PERRLA, sclera anicteric, oral pharynx no lesions Neck: no nodes, no JVD, supple, full ROM Respiratory: no wheezing, no rales, no rhonchi, clear to auscultation bilateral S1, S2 II/ BLAS in RUSB Cardiovascular: RRR, no rub, gallop Gastrointestinal: soft, non-tender, no distention, positive bowel sounds Musculoskeletal: no edema, pulses present Neurological: normal sensation, moves all 4 limbs Psychiatric: normal affect, A&O x 3 Skin: normal turgor, cap refill <2 seconds Dx/Plan (1) GI bleed Code(s): K92.2 - GASTROINTESTINAL HEMORRHAGE, UNSPECIFIED Status: Acute Comment: Secondary to chronic anticoag with Xarelto, plan for bowel prep this pm and endoscopy in am (2) Acute blood loss anemia Code(s): D62 - ACUTE POSTHEMORRHAGIC ANEMIA Status: Acute Comment: s/p 4u PRBC's, serial H/H, hold all NSAIDs and anticoagulation (3) Chronic anticoagulation Code(s): Z79.01 - HALF-WAY (CURRENT) USE OF ANTICOAGULANTS Status: Chronic Comment: Anticoagulation x 20+ years, currently on Xarelto but held due to GI bleed (4) HOLLY (acute kidney injury) Code(s): N17.9 - ACUTE KIDNEY FAILURE, UNSPECIFIED Status: Acute Comment: Likely due to hypovolemia and hypoperfusion, improved with volume replacement, avoid nephrotoxic meds and limit contrast exposure (5) Cardiomyopathy Code(s): I42.9 - CARDIOMYOPATHY, UNSPECIFIED Status: Chronic Comment: Ischemic CM, stable, continue home medications (6) Hypertension Code(s): I10 - ESSENTIAL (PRIMARY) HYPERTENSION Status: Chronic Qualifiers: Hypertension type: essential hypertension Qualified Code(s): I10 - Essential (primary) hypertension Comment: Continue Coreg, Diltiazem (7) PVD (peripheral vascular disease) Code(s): I73.9 - PERIPHERAL VASCULAR DISEASE, UNSPECIFIED Status: Chronic Comment: Chronic, stable - Plan plan discussed w/ family, PT/OT, social sciences professor stable currently -: Serial H/H -: Avoid anticoagulation and NSAIDs -: Protonix gtt -: AM lab: CMP, CBC * Endoscopy in am
[2018-04-21] MEDS: Pantoprazole 80 MG, Admixture Fee 1 EACH in Sodium Chloride 0.9% 100 ML IVP SCH (18:09)
--- NOTE | 2018-04-21 20:06 | CON ---
DATE OF SERVICE: 04/21/2018 REASON FOR CONSULTATION: Severe anemia. HISTORY: Mrs. Bryant is a 63-year-old male who was brought in by EMS to the ER yesterday after havin g a near syncopal episode and severe weakness. His presenting hemoglobin was 2.7. 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 Over the last year, he has been on Xarelto. According to his , he has progressiv e weakness over the last 2 weeks and has become more pale during this time. Yesterday, he could not move his left upper extremity or support himself when he got out of the car. He did have a near sync opal episode, but without any actual losing of consciousness. On ER arrival, he was noted to have he moglobin of 2.7. He has received 4 units of RBC transfusion with current hemoglobin of 10. Patient has poor eyesight, however, has not noted any evidence of GI bleeding such as melena, hematochezia, o r rectal bleeding. He denies any localizing abdominal pain or discomfort. There is no nausea or vom iting. There is no recent change in bowel function. According to his , his primary care doctor in [facility] has noted an anemia with a hemoglobin of 7-8 g/dL back in December. Currently, he feels better without any other GI complaint. PAST MEDICAL HISTORY: 1. Hypertension. 2. Hyperlipidemia. 3. Peripheral vascular disease. 4. Severe cardiomyopathy with EF of 25%, status post AICD placement. 5. 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 6. Status post back surgery and left AKA. ALLERGIES: MORPHINE. MEDICATIONS: At home include Flomax, Celexa, temazepam, simvastatin, diltiazem, diclofenac, Prevacid , Lasix, gabapentin, and Xarelto. ALLERGIES: MORPHINE. SOCIAL HISTORY: Patient has no tobacco or alcohol usage. He stopped smoking 10 years ago. The augustine ent is and lives with his . FAMILY HISTORY: Negative for any known GI problem, liver disease or GI malignancy. REVIEW OF SYSTEMS: Ten point review of systems did not show any other pertinent positives or negativ e. PHYSICAL EXAMINATION: VITAL SIGNS: Temperature is 98.8, blood pressure 138/52, pulse of 70. GENERAL: He is alert, conversant, in no distress. HEENT: Shows anicteric sclerae. Oropharynx clear. NECK: Supple. CARDIOVASCULAR: Shows normal S1, S2 regular rate and rhythm. CHEST: Shows breath sounds. No adventitious sounds. ABDOMEN: Soft, no tenderness, no distention. He has active bowel sounds. No palpable mass or organ omegaly. EXTREMITIES: Showed change of left AKA, no right peripheral edema. LABORATORY DATA: Hemoglobin is 8.1 after 4 units, up from 2.7. WBC is 5.5, platelet count of 192. Electrolytes within normal range, creatinine 1.26, bilirubin 1.4, AST 23, ALT of less than 7. Ferrit in of 3.19. ASSESSMENT: 1. Acute on chronic anemia, obviously iron deficiency with a low ferritin. I suspect he has chronic blood loss. No overt bleeding on presentation. 2. Symptomatic anemia, status post transfusion. Currently, the patient feels much better. 3. Hypertension. 4. Cardiomyopathy. RECOMMENDATIONS: 1. We will proceed with GI tract evaluation with EGD and colonoscopy in a.m. with bowel prep today a s patient will need long-term intact anticoagulant therapy for his DVT. 2. Indication for procedure and risks discussed with patient's . All questions answered. We wi ll proceed. 3. Further recommendations to follow pending endoscopic findings.
[2018-04-21] MEDS ORDERED: Non-Formulary Item 1 EACH (Temazepam [Restoril] 30 MG) PO SCH (21:00)
[2018-04-21] MEDS: Carvedilol 25 MG TAB PO SCH (21:26)
[2018-04-21] MEDS: Tamsulosin HCl 0.4 MG CAP PO SCH (21:27)
[2018-04-21] MEDS: Citalopram 20 MG TAB PO SCH (21:28)
[2018-04-21] MEDS: Simvastatin 20 MG TAB PO SCH (21:28)
[2018-04-21] MEDS: Temazepam 15 MG CAP PO SCH (21:28)
[2018-04-21] MEDS: Gabapentin 300 MG CAP PO SCH (21:28)
[2018-04-22 04:09] LABS: ALT (SGPT) Less than 7 U/L (8-55); AST (SGOT) 10 U/L (5-34); Albumin 3.2 g/dL (3.4-4.8); Alkaline Phosphatase 48 U/L (40-150); Anion Gap 10 mmol/L (10-20); BUN (Urea Nitrogen) 12 mg/dL (8.4-25.7); Bilirubin, Total 0.8 mg/dL (0.2-1.2); Calc. Creatinine Clearance 80 mL/min (70-130); Calcium 8.8 mg/dL (7.8-10.44); Carbon Dioxide 24 mmol/L (23-31); Chloride 113 mmol/L (98-107); Estimated GFR-MDRD 78; Globulin 2.2 g/dL (2.4-3.5); Glucose 80 mg/dL (80-115); Potassium 3.1 mmol/L (3.5-5.1); Protein, Total 5.4 g/dL (5.8-8.1); Sodium 144 mmol/L (136-145)
[2018-04-22] MEDS: HYDROcodone/Acetaminophen 10/325 mg Tablet PO PRN ×4 (04:23→18:53)
[2018-04-22] MEDS: Pantoprazole 80 MG, Admixture Fee 1 EACH in Sodium Chloride 0.9% 100 ML IVP SCH (04:24)
[2018-04-22] MEDS: Carvedilol 25 MG TAB PO SCH ×2 (06:06→20:39)
[2018-04-22] MEDS: Multivitamin W/ Minerals 1 TAB PO SCH (09:24)
[2018-04-22] MEDS: Gabapentin 300 MG CAP PO SCH ×2 (09:24→20:39)
[2018-04-22] MEDS: Diltiazem HCl SR 90 mg Capsule PO SCH (09:24)
[2018-04-22] MEDS ORDERED: Promethazine HCl 25 MG/ML VIAL IM PRN (13:15)
[2018-04-22] MEDS ORDERED: Promethazine HCl 25 MG/ML VIAL SLOW IVP PRN (13:15)
[2018-04-22] MEDS ORDERED: Ondansetron HCl/PF 4 MG/2 ML Vial IVP PRN (13:15)
--- NOTE | 2018-04-22 13:37 | OP ---
DATE OF PROCEDURE: 04/22/2018 PROCEDURE PERFORMED: Esophagogastroduodenoscopy with biopsy and colonoscopy. PREOPERATIVE DIAGNOSIS: Severe iron deficiency anemia. PROCEDURE IN DETAIL: Informed consent was obtained from the patient. He was sedated with total intr avenous anesthesia. The bite block was placed and the endoscope was advanced easily to the second po rtion of the duodenum and retroflexion was performed in the stomach. The esophagus was normal. The GE junction was normal. The stomach had a shallow 9 mm white based ulcer in the antrum. There was a lso a 1 cm shallow white based pyloric channel ulcer. The remainder of the gastric mucosa was normal including retroflexed views. Biopsies were obtained from the antrum of the stomach to rule out H. p ylori. The first and second portions of the duodenum were normal. The patient was turned around. R ectal exam was performed and was normal. The colonoscope was advanced to the cecum where the ileocec al valve and appendiceal orifice were clearly identified. There was some barotrauma around the cecum , but otherwise the colonic mucosa was normal throughout. There was mild left-sided diverticulosis. Retroflex views in the rectum were unremarkable. IMPRESSION: 1. Shallow 9 mm antral ulcer with a clean white base and no stigmata of recent bleeding. 2. Shallow 1 cm pyloric channel ulcer with a clean white base and no stigmata of recent bleeding. 3. Mild left-sided diverticulosis. 4. Otherwise normal colonoscopy. RECOMMENDATIONS: 1. Await histopathology. 2. Pantoprazole twice daily. 3. Advance diet and follow trend of the hemoglobin. 4. Repeat colonoscopy in 10 years for colon cancer screening.
[2018-04-22] MEDS ORDERED: Sodium Chloride 0.9% 10 ML ONE (13:38)
[2018-04-22 13:46] LABS: Hemoglobin 7.3 g/dL (14.0-18.0); Mean Corpuscular HGB CONC 31.5 g/dL (32.0-36.0); Mean Corpuscular Hemoglobin 22.5 pg (27.0-31.0); Mean Corpuscular Volume 71.4 fL (78.0-98.0); Mean Platelet Volume 7.2 fL (7.4-10.4); Platelet Count 171 thou/uL (130-400); RBC Distribution Width 29.1 % (11.5-14.5); Red Blood Cell (RBC) Count 3.25 mill/uL (4.70-6.10); White Blood Cell (WBC) Count 5.8 thou/uL (4.8-10.8)
[2018-04-22] MEDS ORDERED: Lidocaine 1% PF 5 ML VIAL ONE (14:15)
[2018-04-22] MEDS ORDERED: PROPOFOL 200 MG/20 ML VIAL ONE (14:15)
[2018-04-22 14:37] LABS: Anisocytosis MODERATE=16-30 cells (100X) (0-5/hpf); Band 1 % (5-11); Hypochromia SLIGHT = 6-15 cells (100X) (0-5/hpf); Lymphocytes 38 % (21-51); MDiff Complete? YES; Microcytosis SLIGHT = 6-15 cells (100X) (0-5/hpf); Monocytes 2 % (0-10); Neutrophil 59 % (42-75); Nucleated RBC 6 % (0); Ovalocytes SLIGHT = 2-5 cells (100X) (0-1/hpf); PLT Morphology Comment Appears Adequate; Poikilocytosis SLIGHT = 6-15 cells (100X) (0-5/hpf); Polychromasia MODERATE = 3-4 cells (100X) (0-2/hpf); Target Cells SLIGHT = 2-5 cells (100X) (0-1/hpf); Tear Drops SLIGHT = 2-5 cells (100X) (0-1/hpf)
--- NOTE | 2018-04-22 20:00 | PDOC.PN ---
- Subjective Encounter Start Date: 04/22/18 Encounter Start Time: 14:10 Subjective: f/u for GI bleed and acute blood loss anemia. s/p EGD/colonoscopy showing -: 2 gastric ulcers. Protonix recommended. Feels much better today. - Objective Resuscitation Status: Resuscitation Status FULL:Full Resuscitation MAR Reviewed: Yes Vital Signs & Weight: Vital Signs (12 hours) Temp Pulse Resp BP Pulse Ox 04/22/18 19:46 98.2 F 70 16 130/56 L 100 04/22/18 15:43 97.0 F L 122 H 14 139/65 100 04/22/18 14:00 97.8 F 72 16 133/55 L 100 Weight Weight 161 lb 6.054 oz I&O: 04/21/18 04/22/18 04/23/18 06:59 06:59 06:59 Intake Total 425 2053 Output Total 800 1150 Balance -375 903 Result Diagrams: 04/22/18 03:35 04/22/18 03:35 Additional Labs: Laboratory Tests 04/20/18 04/20/18 04/20/18 17:54 17:54 17:54 Hgb 2.7 L* MCV 52.1 L PT 33.6 H INR 3.3 Creatinine 1.52 H Iron TIBC % Saturation Vitamin B12 Folate 04/20/18 04/20/18 04/21/18 22:44 22:44 03:46 Hgb 5.5 L* MCV 64.5 L PT INR Creatinine Iron 155 TIBC 398 % Saturation 39 Vitamin B12 687 Folate 16.40 04/21/18 13:51 Hgb 8.1 L MCV PT INR Creatinine Iron TIBC % Saturation Vitamin B12 Folate EKG Reviewed by me: Yes (Tele - Paced) Phys Exam - Physical Examination Constitutional: NAD L pupil larger than R(chronic) HEENT: sclera anicteric, oral pharynx no lesions Neck: no nodes, no JVD, supple Respiratory: no wheezing, no rales, no rhonchi, clear to auscultation bilateral S1, S2 Cardiovascular: RRR, no significant murmur, no rub, gallop Gastrointestinal: soft, non-tender, no distention, positive bowel sounds Musculoskeletal: no edema, pulses present Neurological: normal sensation, moves all 4 limbs Psychiatric: normal affect, A&O x 3 Skin: normal turgor, cap refill <2 seconds Dx/Plan (1) GI bleed Code(s): K92.2 - GASTROINTESTINAL HEMORRHAGE, UNSPECIFIED Status: Acute Comment: Secondary to gastric ulceration and Xarelto, stable, continue Protonix 40mg BID (2) Acute blood loss anemia Code(s): D62 - ACUTE POSTHEMORRHAGIC ANEMIA Status: Acute Comment: s/p 4u PRBC's, serial H/H, hold all NSAIDs and anticoagulation (3) Chronic anticoagulation Code(s): Z79.01 - VP PLATFORMS (CURRENT) USE OF ANTICOAGULANTS Status: Chronic Comment: Anticoagulation x 20+ years, currently on Xarelto but held due to GI bleed (4) HOLLY (acute kidney injury) Code(s): N17.9 - ACUTE KIDNEY FAILURE, UNSPECIFIED Status: Acute Comment: Likely due to hypovolemia and hypoperfusion, improved with volume replacement, avoid nephrotoxic meds and limit contrast exposure (5) Cardiomyopathy Code(s): I42.9 - CARDIOMYOPATHY, UNSPECIFIED Status: Chronic Comment: Ischemic CM, stable, continue home medications (6) Hypertension Code(s): I10 - ESSENTIAL (PRIMARY) HYPERTENSION Status: Chronic Qualifiers: Hypertension type: essential hypertension Qualified Code(s): I10 - Essential (primary) hypertension Comment: Continue Coreg, Diltiazem (7) PVD (peripheral vascular disease) Code(s): I73.9 - PERIPHERAL VASCULAR DISEASE, UNSPECIFIED Status: Chronic Comment: Chronic, stable - Plan plan discussed w/ family, social work msw, out of bed/ambulate, DVT proph w/SCDs stable overall -: Continue Protonix 40mg BID -: Hold Xarelto x 5 days -: OOB with assist -: AM lab: CBC * Home 04/23/18
[2018-04-22] MEDS: Simvastatin 20 MG TAB PO SCH (20:39)
[2018-04-22] MEDS: Citalopram 20 MG TAB PO SCH (20:39)
[2018-04-22] MEDS: Tamsulosin HCl 0.4 MG CAP PO SCH (20:39)
[2018-04-22] MEDS: Temazepam 15 MG CAP PO SCH (20:40)
[2018-04-23] MEDS: HYDROcodone/Acetaminophen 10/325 mg Tablet PO PRN ×4 (00:39→12:55)
[2018-04-23 04:35] LABS: #Eosinphils 0.1 thou/uL (0.0-0.7); #Lymphocytes 2.3 thou/uL (1.20-3.40); #Monocytes 0.6 thou/uL (0.11-0.59); %Basophils 0.5 % (0.0-1.0); %Eosinophils 1.4 % (0.0-10.0); %Lymphocytes 32.7 % (21.0-51.0); %Monocytes 8.1 % (0.0-10.0); %Neutrophils 57.4 % (42.0-75.0); Hemoglobin 7.5 g/dL (14.0-18.0); Hypochromia MODERATE=16-30 cells (100X) (0-5/hpf); MDiff Complete? YES; Mean Corpuscular HGB CONC 31.1 g/dL (32.0-36.0); Mean Corpuscular Hemoglobin 22.3 pg (27.0-31.0); Mean Corpuscular Volume 71.6 fL (78.0-98.0); Mean Platelet Volume 6.4 fL (7.4-10.4); PLT Morphology Comment Appears Adequate; Platelet Count 145 thou/uL (130-400); RBC Distribution Width 30.3 % (11.5-14.5); Red Blood Cell (RBC) Count 3.37 mill/uL (4.70-6.10)
[2018-04-23] MEDS: Diltiazem HCl SR 90 mg Capsule PO SCH (08:38)
[2018-04-23] MEDS: Gabapentin 300 MG CAP PO SCH (08:38)
[2018-04-23] MEDS: Carvedilol 25 MG TAB PO SCH (08:41)
[2018-04-23] MEDS: Multivitamin W/ Minerals 1 TAB PO SCH (08:44)
[2018-04-23 10:58] VITALS: BP 156/75; TEMP 97.6
--- NOTE | 2018-04-23 16:46 | PRG ---
DATE OF SERVICE: 04/23/2018 SUBJECTIVE: Mr. Bryant has had no overt bleeding since the procedure. He is tolerating his diet wel l. He has no abdominal pain. OBJECTIVE: LUNGS: Clear to auscultation bilaterally. HEART: Regular rate and rhythm without murmur. ABDOMEN: Soft, nontender, nondistended. Bowel sounds are present. EXTREMITIES: No lower extremity edema. LABORATORY DATA: White blood cell count 7.0, hemoglobin 7.5, platelets 145. Creatinine 0.97. IMPRESSION: 1. Gastric antral ulcers and pyloric channel ulcer. 2. Iron deficiency anemia. 3. Anemia of chronic blood loss on anticoagulation. 4. Severe cardiomyopathy. 5. History of stroke. RECOMMENDATIONS: 1. He did develop the ulcers while on Prevacid once daily. He will be discharged on pantoprazole 40 mg twice daily. 2. Ulcers ultimately did form while on NSAIDs with a diclofenac and Advil. These should be disconti nued. 3. Restart Xarelto in 5 days. 4. He should discharge home today.
--- NOTE | 2018-04-24 00:28 | DIS ---
DATE OF ADMISSION: 04/20/2018 DATE OF DISCHARGE: 04/23/2018 DISCHARGE DIAGNOSES: 1. Acute gastrointestinal bleed secondary to gastric ulceration and Xarelto. 2. Acute blood loss anemia, status post 4 units of packed red blood cells. 3. Gastric/pyloric ulcers. 4. Chronic anticoagulation with Xarelto. 5. Acute kidney injury, resolved. 6. Ischemic cardiomyopathy, stable. 7. Hypertension, stable. 8. Peripheral vascular disease, chronic and stable. CONSULTATIONS: Dr. Leeroy rBito and Dr. Murray Fonseca with GI Service. PERTINENT LABORATORY AND X-RAY FINDINGS: Potassium ranged between 3.1-4.1, creatinine ranged between 0.97-1.52, estimated GFR ranging between 46-78, serum iron level 155, TIBC 398, ferritin 3.19, vitam in B12 level 687, folate 16.4. CBC showed a hemoglobin ranging between 2.7-8.1, platelet count range d between 145-217. Reticulocyte count 2.3, haptoglobin 199. PT 33.6 and INR 3.3, 04/20/2018. CT of the brain without contrast dated 04/20/2018 showed no acute intracranial process. EGD/colonoscopy d ated 04/22/2018 showed antral ulcer and pyloric channel ulcer without active bleed. Mild left-sided diverticulosis. HOSPITAL COURSE: The patient was admitted to the intermediate care unit after presenting with bilate ral upper extremity weakness and left visual disturbance. The patient underwent metabolic screening showing an initial hemoglobin of 2.7. The patient was typed and crossed for 4 units of packed red bl ood cells, receiving a total of 4 units during the hospital course. 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 All antic oagulation and NSAIDs were held during the hospital course and the patient was evaluated by the GI se michelle, undergoing EGD and colonoscopy showing antral and pyloric ulcer. The patient was continued on Protonix infusion with recommendations to transition to Protonix 40 mg b.i.d. The patient clinicall y stabilized with hemoglobin in the 7.5 to 8 range throughout the remainder of the hospital course. Current recommendations are to continue a proton pump inhibitor indefinitely and hold anticoagulation for approximately 5 days after discharge. The patient was also evaluated by the Ophthalmology servi ce due to visual disturbance of the left eye with recommendations for outpatient followup with a ret inal specialist. I have examined the patient at the time of discharge and discussed followup instru ctions. The patient and verbalized understanding and agreement, ready for discharge on 04/23/20 18. DISCHARGE MEDICATIONS: 1. Coreg 37.5 mg p.o. b.i.d. 2. Celexa 20 mg p.o. at bedtime. 3. Diltiazem ER 90 mg p.o. daily. 4. Lasix 40 mg p.o. b.i.d. 5. Neurontin 300 mg p.o. b.i.d. 6. [place] 10/325 mg one to two tabs p.o. q.4 hours p.r.n. pain. 7. Multivitamin 1 tab p.o. daily. 8. K-Dur 20 mEq p.o. daily. 9. Simvastatin 20 mg p.o. at bedtime. 10. Tamsulosin 0.4 mg p.o. at bedtime. 11. Temazepam 30 mg p.o. at bedtime. 12. Tylenol 650 mg p.o. q.4-6 hours p.r.n. pain. 13. Protonix 40 mg p.o. b.i.d. 14. Xarelto 20 mg p.o. daily, hold until 04/28/2018. FOLLOWUP: The patient will follow up with Dr. Adiel Mcguire and to call his office for appoin tment time and date. The patient will follow up with Dr. Leeroy Brito and to call his office for ap pointment time and date. CONDITION ON DISCHARGE: Stable. ACTIVITY: Ad marty. DIET: Heart healthy. CODE STATUS: Full. DISPOSITION: Home, 04/23/2018. Total time preparing and coordinating discharge is 35 minutes.
--- NOTE | 2018-04-24 17:58 | EKG ---
Test Reason : Blood Pressure : / mmHG Vent. Rate : 076 BPM Atrial Rate : 076 BPM P-R Int : 158 ms QRS Dur : 146 ms QT Int : 480 ms P-R-T Axes : 109 107 038 degrees QTc Int : 540 ms AV dual-paced rhythm Biventricular pacemaker detected Abnormal ECG Confirmed by JIMMY LAWSON ([id number]), order editor ALBERT HASKINS ([id number]) on 04/24/2018 5:58:12 PM Referred By: Confirmed By:JIMMY LAWSON
--- NOTE | 2018-04-25 20:24 | EKG ---
Test Reason : Blood Pressure : / mmHG Vent. Rate : 072 BPM Atrial Rate : 072 BPM P-R Int : 000 ms QRS Dur : 176 ms QT Int : 498 ms P-R-T Axes : 000 036 064 degrees QTc Int : 545 ms AV sequential or dual chamber electronic pacemaker When compared with ECG of 20-APR-2018 17:06, (Unconfirmed) Vent. rate has decreased BY 4 BPM Confirmed by Ofelia MARISCAL ([id number]) on 04/25/2018 8:24:02 PM Referred By: NORI Confirmed By:Ofelia MARISCAL
== END 2018-04-23 15:45 | disposition home or self-care (01) | DRG 811 ==
LOC: ERS 17:04 → IMCU/EMU 18:50
PROVIDERS: ADMIT Internal Medicine; ATTEND Internal Medicine
PROC: 30233N1 Transfusion of Nonautologous Red Blood Cells into Peripheral Vein, Percutaneous Approach (ICD-10-PCS; principal; 2018-04-20)
PROC: 0DB78ZX Excision of Stomach, Pylorus, Via Natural or Artificial Opening Endoscopic, Diagnostic (ICD-10-PCS; 2018-04-22)
PROC: 0DJD8ZZ Inspection of Lower Intestinal Tract, Via Natural or Artificial Opening Endoscopic (ICD-10-PCS; 2018-04-22)
DX: D62 Acute posthemorrhagic anemia (principal); K25.0 Acute gastric ulcer with hemorrhage; N17.9 Acute kidney failure, unspecified; T45.515A Adverse effect of anticoagulants, initial encounter; I25.5 Ischemic cardiomyopathy; I10 Essential (primary) hypertension; I73.9 Peripheral vascular disease, unspecified; K57.30 Diverticulosis of large intestine without perforation or abscess without bleeding; H53.9 Unspecified visual disturbance; D50.9 Iron deficiency anemia, unspecified; Z86.718 Personal history of other venous thrombosis and embolism; Z79.01 Long term (current) use of anticoagulants; Z98.1 Arthrodesis status; Z89.612 Acquired absence of left leg above knee; Z88.5 Allergy status to narcotic agent; Z87.891 Personal history of nicotine dependence; I25.2 Old myocardial infarction; I48.91 Unspecified atrial fibrillation; Z95.810 Presence of automatic (implantable) cardiac defibrillator; E78.5 Hyperlipidemia, unspecified; M48.50XD Collapsed vertebra, not elsewhere classified, site unspecified, subsequent encounter for fracture with routine healing; H91.90 Unspecified hearing loss, unspecified ear; F32.9 Major depressive disorder, single episode, unspecified
CPT/HCPCS: 36415; 36416; 36430; 70450; 71045; 80053; 80069; 82553; 82607; 82728; 82746; 83010; 83540; 83550; 83615; 84484; 85025; 85046; 85060; 85610; 85730; 86850; 86880; 86900; 86901; 88305; 88312; 90471; 90686; 93005; 93010; 94760; 96365; 96375; 99292; A4216; C9113; C9132; G0008; J2001; J2704; J3430; J7050; P9016

== ENCOUNTER 2018-08-18 08:11 | Day surgery (SDC) | payer MEDICARE ==
[2018-08-17 12:16] VITALS: BMI 20.9
[2018-08-18] MEDS ORDERED: PROPOFOL 200 MG/20 ML VIAL ONE (10:37)
[2018-08-18] MEDS ORDERED: Lidocaine 1% PF 5 ML VIAL ONE (10:37)
[2018-08-18 10:49] LABS: #Basophils 0.1 thou/uL (0.0-0.2); #Eosinphils 0.2 thou/uL (0.0-0.7); #Lymphocytes 2.2 thou/uL (1.20-3.40); #Monocytes 0.6 thou/uL (0.11-0.59); #Neutrophils 3.6 thou/uL (1.40-6.50); %Basophils 0.9 % (0.0-1.0); %Eosinophils 2.8 % (0.0-10.0); %Lymphocytes 33.4 % (21.0-51.0); %Monocytes 8.4 % (0.0-10.0); %Neutrophils 54.6 % (42.0-75.0); Hemoglobin 14.7 g/dL (14.0-18.0); Mean Corpuscular HGB CONC 31.5 g/dL (32.0-36.0); Mean Corpuscular Hemoglobin 28.7 pg (27.0-31.0); Mean Corpuscular Volume 91.1 fL (78.0-98.0); Platelet Count 131 thou/uL (130-400); RBC Distribution Width 13.9 % (11.5-14.5); Red Blood Cell (RBC) Count 5.12 mill/uL (4.70-6.10); White Blood Cell (WBC) Count 6.6 thou/uL (4.8-10.8)
--- NOTE | 2018-08-18 12:30 | OP ---
DATE OF PROCEDURE: 08/18/2018 PROCEDURE PERFORMED: Esophagogastroduodenoscopy. PREMEDICATION: Given by Anesthesiology Department. PREPROCEDURE DIAGNOSIS: Followup gastric ulcer. POSTPROCEDURE DIAGNOSES: 1. Mild gastritis, midbody. 2. Healed ulcer. PROCEDURE IN DETAIL: Written consents were obtained prior to the procedure. After adequate sedation, forward viewing endoscope was advanced down the stomach under direct vision to the third portion of duodenum. The duodenum and the bulb appeared normal. The pylorus was patent. The gastric antrum, body, fundus, and cardia appeared normal. Mucosal erythema consistent with nonerosive gastritis was noted in the mid body. Several hyperplastic polyps were noted. No stigmata of bleeding was seen. Retroflexion was normal. The GE junction located at 40 cm. The esophagus appeared normal. ASSESSMENT: 1. Mild nonerosive gastritis. 2. Healed ulcer. RECOMMENDATIONS: Decrease pantoprazole to 40 mg daily, may discontinue in three months. Job ID: [id number]
== END 2018-08-18 12:55 | disposition home or self-care (01) ==
LOC: SDC 08:11
PROVIDERS: ATTEND Internal Medicine Gastroenterology
PROC: 0DJ08ZZ Inspection of Upper Intestinal Tract, Via Natural or Artificial Opening Endoscopic (ICD-10-PCS; principal; 2018-08-18)
DX: K29.60 Other gastritis without bleeding (principal); K31.7 Polyp of stomach and duodenum; D50.0 Iron deficiency anemia secondary to blood loss (chronic); K21.9 Gastro-esophageal reflux disease without esophagitis; I48.91 Unspecified atrial fibrillation; E78.00 Pure hypercholesterolemia, unspecified; I11.0 Hypertensive heart disease with heart failure; I50.9 Heart failure, unspecified; K22.70 Barrett's esophagus without dysplasia; Z87.891 Personal history of nicotine dependence; Z86.73 Personal history of transient ischemic attack (TIA), and cerebral infarction without residual deficits; Z79.01 Long term (current) use of anticoagulants; Z79.1 Long term (current) use of non-steroidal anti-inflammatories (NSAID); Z79.899 Other long term (current) drug therapy; Z88.5 Allergy status to narcotic agent
CPT/HCPCS: 36415; 85025; J2001; J2704

== ENCOUNTER 2019-09-01 19:24 | Inpatient (IN) | payer MEDICARE ==
[~2019-09-01 19:24] MED LIST changes: -Bupivacaine 0.25% HCL 30 ML VIAL ONE; -CEFAZOLIN/Water 2 GM/20 ML SYRINGE ONE; -Dexamethasone 20 MG/5 ML VIAL ONE; -Fentanyl 100 MCG/2 ML VIAL ONE; -Glycopyrrolate 0.2 MG/ML 5 ML SYRINGE ONE; +Iopamidol-370 76% 500 ML 1 ML ONE; -Lidocaine 1% (PF) 30 ML VIAL ONE; -Ondansetron HCl/PF 4 MG/2 ML Vial ONE; +Rocuronium Bromide 10 MG/ML (10ML VIAL) ONE
[2019-09-01 19:45] LABS: #Basophils 0.1 thou/uL (0.0-0.2); #Eosinphils 0.1 thou/uL (0.0-0.7); #Monocytes 0.7 thou/uL (0.11-0.59); #Neutrophils 5.4 thou/uL (1.40-6.50); %Eosinophils 1.4 % (0.0-10.0); %Lymphocytes 38.6 % (21.0-51.0); %Monocytes 6.6 % (0.0-10.0); %Neutrophils 52.3 % (42.0-75.0); Hemoglobin 14.2 g/dL (14.0-18.0); Mean Corpuscular HGB CONC 33.1 g/dL (32.0-36.0); Mean Corpuscular Volume 90.7 fL (78.0-98.0); Mean Platelet Volume 8.9 fL (7.4-10.4); Platelet Count 184 thou/uL (130-400); RBC Distribution Width 13.4 % (11.5-14.5); Red Blood Cell (RBC) Count 4.74 mill/uL (4.70-6.10); White Blood Cell (WBC) Count 10.3 thou/uL (4.8-10.8)
--- NOTE | 2019-09-01 19:46 | CT ---
CT Brain WO Con: 09/01/2019 7:31 PM CLINICAL HISTORY: Level 2 stroke alert with right-sided weakness and aphasia. IMAGING TECHNIQUE: Multiple CT images were obtained of the brain without IV contrast. COMPARISON: April 20, 2018 FINDINGS: Brain: No acute infarct or hemorrhage is evident. No midline shift. Ventricles: Normal. No hydrocephalus. Skull: Intact. Visualized Paranasal sinuses: Clear. Mastoid air cells:Clear. Extracranial soft tissues:Normal. IMPRESSION: No acute intracranial abnormality. Findings called Dr. Cabello at 7:43 PM on September 01, 2019.
[2019-09-01 19:47] LABS: PTT 30.2 SEC (22.9-36.1); Prothrombin Time 13.4 SEC (12.0-14.7)
[2019-09-01 19:55] LABS: ALT (SGPT) 9 U/L (8-55); AST (SGOT) 15 U/L (5-34); Albumin 4.3 g/dL (3.4-4.8); Alkaline Phosphatase 92 U/L (40-110); Anion Gap 12 mmol/L (10-20); BUN (Urea Nitrogen) 13 mg/dL (8.4-25.7); Bilirubin, Total 0.5 mg/dL (0.2-1.2); Calc. Creatinine Clearance 0 mL/min (70-130); Calcium 9.6 mg/dL (7.8-10.44); Carbon Dioxide 28 mmol/L (23-31); Chloride 102 mmol/L (98-107); Estimated GFR-MDRD 63; Globulin 2.8 g/dL (2.4-3.5); Glucose 94 mg/dL (80-115); Protein, Total 7.1 g/dL (5.8-8.1); Sodium 138 mmol/L (136-145)
--- NOTE | 2019-09-01 20:11 | CT ---
CTA of the head with IV contrast and 3-D reformatted imaging. CTA of the neck with IV contrast and 3-D reformatted imaging. INDICATION: Level 2 stroke; right-sided weakness and aphasia COMPARISON: CT the brain without contrast dated September 01, 2019 CTA of the head and neck dated 2016. FINDINGS: CTA OF THE HEAD WITH CONTRAST: CTA OF THE BRAIN: Right ICA: Patent. Right MCA: Patent. Right STERLING: Patent. ACOM: Patent. Left ICA: Patent. Left MCA: There is complete occlusion of the left M1 segment. There is reconstitution of flow seen a t the level of the distal left M2 segment from collaterals. There is well-formed collateralization in the left MCA distribution. Left STERLING: Patent. PCOMs: Patent. Vertebral arteries: Patent. Basilar Artery: Patent. tableau administrator: Patent. Incidentals: No abnormal enhancement. CTA OF THE NECK WITH CONTRAST: Right CCA: Patent. Right ICA: Patent. Right Subclavian: Patent. Right Vertebral Artery: Patent. Left CCA: Patent. Left ICA: There is mild, less than 50% luminal caliber narrowing, involving the proximal left ICA. Left Subclavian: Patent. Left Vertebral Artery: The proximal origin and proximal segment of the left cervical vertebral arter y is limited due to venous contamination. The remaining course of the left cervical vertebral artery is patent. Aerodigestive tract: Clear. Parotids/Submandibular/Thyroid glands: Normal. Lymph nodes: No pathologically enlarged lymph nodes. Lung Apices: Mild paraseptal emphysema Bones: There is scattered degenerative and osteoarthritic change present. Chronic appearing wedge co mpression abnormalities C7-T1 these are stable to the prior CTA of the neck dated July 09, 2017 Incidentals: None. IMPRESSION: 1. Occlusive thrombus seen within the left M1 segment with reconstitution of flow within the distal l eft M2 segment via collaterals. Findings were called to Dr. Cabello at 7:58 PM on September 01, 2019. 2. Less than 50% luminal caliber narrowing involving the proximal left ICA due to partially calcified atherosclerotic plaque.
[2019-09-01] MEDS ORDERED: Heparin 10,000 UNITS/1 ML VIAL ONE (22:41)
[2019-09-01] MEDS ORDERED: Fentanyl 100 MCG/2 ML VIAL ONE (23:06)
[2019-09-01] MEDS ORDERED: Heparin (Artline) 1,000 ML ONE (23:18)
[2019-09-01] MEDS ORDERED: Lidocaine 1% (PF) 30 ML VIAL ONE (23:18)
[2019-09-01] MEDS ORDERED: niCARdipine 25 MG in Sodium Chloride 0.9% 250 ML 240 ML IVPB PRN (23:44)
[2019-09-01] MEDS ORDERED: hydrALAZINE 20 MG/ML VIAL SLOW IVP PRN (23:44)
[2019-09-02] MEDS ORDERED: Acetaminophen 650 MG Suppository PR PRN (00:04)
--- NOTE | 2019-09-02 00:43 | PRG ---
DATE OF SERVICE: 09/01/2019 HISTORY OF PRESENT ILLNESS: Mr. Bryant is a 64-year-old gentleman who presented with right hemiparesis and aphasia to the ER. He had a noncontrast head CT, which was negative for hemorrhage. Subsequent to that, he had a CT angiogram performed, which revealed occlusion of the branch of the left MCA. At some point thereafter, he had near complete resolution of his symptoms. Over the course of the follow, he redeveloped these symptoms. I was contacted again and decided to take him to the labor arbitrator hearing office. I met with his and other family member and discussed with them again his diagnosis, his imaging, planned procedure which is angiography with potential for mechanical thrombectomy. I reviewed with them all risks, benefits, and alternatives. They understand and they have provided consent. Job ID: [id number]
--- NOTE | 2019-09-02 01:10 | HP ---
TIME OF ASSESSMENT: 2100 hours. CHIEF COMPLAINT: Facial droop and right-sided weakness. HISTORY OF PRESENT ILLNESS AND REVIEW OF SYSTEMS: Mr. Bryant is a 64-year-old gentleman, who is accompanied by his and family members, who states he was brought by EMS after developing right upper extremity weakness and expressive aphasia that started at approximately 5:45 p.m. this evening. The patient was heating something up in the microwaves and was noted to have difficulty figuring out how to work the microwaves. It was then that his noted his right arm was hanging to his side while he was sitting in a scooter. He attempted to lift it and it continued to drop down to his side and she noted he had complete weakness in that arm. He did not answer any questions appropriately and appeared to be confused. He was brought in to the emergency department by EMS after she had her family member assess him, who lives across the street and is a supervisor cook house. On arrival to the emergency department, the patient underwent CT imaging of the brain, which demonstrated no acute intracranial abnormality. However, further imaging with a CT angiogram of the head and neck then revealed an occlusive thrombus within the left M1 segment with reconstitution of flow within the distal left M2 segment via collaterals. There was less than 50% luminal caliber narrowing involving the proximal left ICA due to partially calcified atherosclerotic plaque. The patient was reportedly showing signs of improvement on arrival to the emergency department. The case was discussed with Dr. Bellamy, who advised the patient was not a candidate for tPA and no indications for intervention given improving symptoms. Of note, the patient is on anticoagulation with Eliquis for history of atrial fibrillation and also has peripheral arterial disease, status post left lower extremity amputation. According to his granddaughter, it appears that his Eliquis had ran out recently and he had been receiving less than the recommended dose for a brief period of time. At this present time, I am unable to obtain any information from the patient as he continues to have not only expressive aphasia, but appears to be encephalopathic with the ability to follow some commands, but does not seem to have complete comprehension. PAST MEDICAL HISTORY: 1. Hypertension. 2. Peripheral vascular disease. 3. Atrial fibrillation with known EF of 25%. 4. AICD. 5. Multiple compression fractures. 6. Osteoporosis. 7. Hard of hearing, uses hearing aids. 8. 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 9. Depression. PAST SURGICAL HISTORY: 1. Right elbow surgery in September 2017. 2. Qqlry-ptd-[id number] amputation to the left leg. 3. Vascular surgery to the right leg. 4. Multiple back surgeries. SOCIAL HISTORY: The patient lives with his . He mobilizes with a motorized chair. He is a former smoker. Previous history of alcohol abuse, but quit in 1999. ALLERGIES: MORPHINE. CURRENT MEDICATIONS: 1. Protonix. 2. [place]. 3. Centrum Silver. 4. Tamsulosin. 5. Celexa. 6. Simvastatin. 7. Diltiazem. 8. Furosemide. 9. Gabapentin. 10. Coreg. 11. Eliquis. 12. Restoril. PHYSICAL EXAMINATION: GENERAL: The patient appears well developed. He was found resting on the stretcher. Does not appear to be in any distress, but does appear confused. VITAL SIGNS: Temperature 98.5, pulse 70, blood pressure 150/98, respirations 16 , and O2 saturation 97% on room air. HEENT: Normocephalic and atraumatic. Pupils are equal, round, and reactive to light. Sclerae without icterus. Oropharynx is clear. NECK: Supple without lymphadenopathy. LUNGS: Clear to auscultation bilaterally without any wheezes, rales, or rhonchi. CARDIAC: Regular rate and rhythm without audible murmurs, rubs, or gallops. ABDOMEN: Soft, nontender, nondistended. Normoactive bowel sounds present. No guarding or rigidity. No renal angle tenderness. EXTREMITIES: No lower leg swelling or edema. NEUROLOGIC: The patient with right-sided arm drift, obvious right facial droop. The patient is not answering questions, but able to follow some commands while others, he does not seem to comprehend. Difficulty to assess lower extremity strength, though he is able to lift both legs and difficulty to assess sensory status. INVESTIGATIONS: EKG showed a paced rhythm with a heart rate of 70. Workup otherwise as mentioned above in HPI. LABORATORY DATA: White count 10.3, hemoglobin 14.2, hematocrit 43, platelets 184, neutrophils 52.3%. Sodium 138, potassium 4, BUN 13, creatinine 1.16, GFR 63, glucose 94. LFTs unremarkable. Troponin negative. Albumin 4.3. IMPRESSION AND PLAN: Mr. Bryant is a 64-year-old gentleman, who presents with signs and symptoms of stroke confirmed on CT angiogram of the head and neck, which confirmed an occlusion of the left M1 segment. Case was discussed with Dr. Bellamy, who felt that due to improving symptoms, there was no need for intervention at this time. During my assessment of the patient, and upon further conversation with the family, they expressed concerns that though he initially had some improvements, he seems to be worsening again in terms of his confusion, inability to speak, and right arm weakness seems to be returning. Case was discussed with Dr. Cabello, who has already notified Dr. Bellamy and the patient will be taken to the ear mold laboratory technician. He will likely be transferred to the unit. We will place consultation on Neuro, obtain echo and continue to monitor. Code status full. Surrogate decision maker is his , Micaela Bryant. Case discussed with Dr. Tran, who is aware of plan as mentioned above. Job ID: [id number] MTDD
[2019-09-02 05:48] LABS: #Basophils 0.1 thou/uL (0.0-0.2); #Lymphocytes 2.6 thou/uL (1.20-3.40); #Monocytes 0.6 thou/uL (0.11-0.59); #Neutrophils 6.4 thou/uL (1.40-6.50); %Basophils 0.7 % (0.0-1.0); %Eosinophils 0.4 % (0.0-10.0); %Lymphocytes 26.9 % (21.0-51.0); %Monocytes 5.9 % (0.0-10.0); %Neutrophils 66.1 % (42.0-75.0); Hemoglobin 12.5 g/dL (14.0-18.0); Mean Corpuscular HGB CONC 33.1 g/dL (32.0-36.0); Mean Corpuscular Hemoglobin 29.9 pg (27.0-31.0); Mean Corpuscular Volume 90.3 fL (78.0-98.0); Mean Platelet Volume 8.6 fL (7.4-10.4); Platelet Count 165 thou/uL (130-400); RBC Distribution Width 13.1 % (11.5-14.5); Red Blood Cell (RBC) Count 4.17 mill/uL (4.70-6.10); White Blood Cell (WBC) Count 9.7 thou/uL (4.8-10.8)
[2019-09-02 06:13] LABS: Anion Gap 13 mmol/L (10-20); BUN (Urea Nitrogen) 11 mg/dL (8.4-25.7); Calc. Creatinine Clearance 85 mL/min (70-130); Calcium 9.1 mg/dL (7.8-10.44); Carbon Dioxide 24 mmol/L (23-31); Cardiac Risk 2.3 (Less than 4.5); Chloride 108 mmol/L (98-107); Cholesterol 109 mg/dl (< 200 Desired); Estimated GFR-MDRD 72; Glucose 105 mg/dL (80-115); HDL Cholesterol 47 mg/dL (>60 Neg Risk); LDL Cholesterol, Calculated 46 mg/dL; Potassium 3.7 mmol/L (3.5-5.1); Sodium 141 mmol/L (136-145); Triglycerides 79 mg/dL (Less than 150)
[2019-09-02] MEDS ORDERED: FLU VACC TS2019-20(65YR UP)/PF 180 MCG/0.5 ML SYRINGE IM ONE (09:00)
[2019-09-02] MEDS ORDERED: Prevnar 13-Val Conj/PF 0.5 ML SYRINGE IM ONE (09:00)
--- NOTE | 2019-09-02 09:24 | CT ---
PRELIMINARY REPORT/[facility]/EMERGENCY AFTER HOURS PROCEDURE EXAM: CT Head Without Intravenous Contrast. CLINICAL HISTORY: POST THROMBECTOMY TECHNIQUE: Axial computed tomography images of the head/brain without intravenous contrast. COMPARISON: CT - CT BRAIN WO CON - 09/01/2019 07:38 PM HEEL ATTACHER FINDINGS: BRAIN: No acute intraparenchymal hemorrhage. No mass lesion. No CT evidence for acute territorial inf arct. No midline shift or extra-axial collection. VENTRICLES: No hydrocephalus. ORBITS: The orbits are unremarkable. SINUSES AND MASTOIDS: The paranasal sinuses and mastoid air cells are clear. SOFT TISSUES: No significant facial or scalp soft tissue swelling evident. No radiopaque foreign body is seen. BONES: No acute skull fracture. IMPRESSION: No acute intracranial abnormality. ELECTRONICALLY SIGNED BY: Gala Mcrae MD Sep 02, 2019 4:35:05 AM HEEL ATTACHER FINAL REPORT CT BRAIN WITHOUT CONTRAST: I agree with the preliminary report given by Dr. Gala Mcrae [facility]. POS: [facility]
--- NOTE | 2019-09-02 10:16 | PRG ---
DATE OF SERVICE: 09/02/2019 Mr. Bryant is a 64-year-old gentleman, who is now status post one day mechanical thrombectomy for a left MCA occlusion. I reviewed his CT scan performed today, which is encouraging and it shows no evidence for hemorrhage and no evidence for early infarct. Neurologically, he has improved now as compared to when I met him last evening. He moves the right side. He is able to speak to me, although it is somewhat dysarthric. I am encouraged by his progress and anticipate he will continue to improve. With respect to plan of care, he will need to continue undergoing risk stratification for stroke as well as move forward with PT, OT, and inpatient rehab. I appreciate the assistance of our hospitalist colleagues as well. Job ID: [id number]
--- NOTE | 2019-09-02 10:46 | PDOC.HOSPP ---
- Subjective Encounter Date: 09/02/19 Encounter Time: 10:43 Subjective: Mr. Bryant was seen today in follow-up of acute CVA post thrombectomy. He still has some expressive aphasia. - Objective Vital Signs & Weight: Vital Signs (12 hours) Temp Pulse Ox 09/02/19 04:00 98.5 F 09/02/19 01:00 98.3 F 09/02/19 00:45 96 Weight Weight 186 lb 1.122 oz Most Recent Monitor Data Heart Rate from ECG 82 NIBP 151/71 NIBP BP-Mean 97 Respiration from ECG 16 SpO2 97 I&O: 09/01/19 09/02/19 09/03/19 06:59 06:59 06:59 Output Total 505 Balance -505 Result Diagrams: 09/02/19 05:36 09/02/19 05:36 Additional Labs: Accuchecks 09/01/19 19:33 POC Glucose 96 - Exam Eye: PERRL ENT - other findings: + right facila droop Heart: RRR, no murmur, no gallops, no rubs, normal peripheral pulses, irregular Respiratory: CTAB, no wheezes, no rales, no ronchi, normal chest expansion, no tachypnea, normal percussion Gastrointestinal: soft, non-tender, non-distended, normal bowel sounds, no palpable masses, no hepatomegaly Extremities: no cyanosis, no edema Extremities - other findings: Left AKA Neurological: facial droop (right, and right upper extremity weakness) Hosp A/P (1) Acute CVA (cerebrovascular accident) Code(s): I63.9 - CEREBRAL INFARCTION, UNSPECIFIED Status: Acute (2) Paroxysmal A-fib Code(s): I48.0 - PAROXYSMAL ATRIAL FIBRILLATION Status: Chronic (3) Hypertension Code(s): I10 - ESSENTIAL (PRIMARY) HYPERTENSION Status: Chronic Qualifiers: Hypertension type: essential hypertension Qualified Code(s): I10 - Essential (primary) hypertension - Plan * Acute CVA- patient is s/p Thrombectomy, with right facial droop, and right upper extremity weakness, and aphasia * Continue usual stroke protocol- aspirin ,Lipitor * He can be moved out of the ICU * Continue PT/OT and Speech Therapy * HTN- blood pressure is in acceptable range
[2019-09-02] MEDS: Aspirin 325 mg Enteric Coated Tablet PO SCH (11:30)
[2019-09-02] MEDS: Enoxaparin Sodium 30 MG/0.3 ML SYRINGE SC SCH (11:33)
[2019-09-02] MEDS: Famotidine/PF 20 mg/2ml Vial SLOW IVP SCH ×2 (11:34→20:44)
[2019-09-02] MEDS: Aspirin 300 MG Suppository PR SCH (11:34)
--- NOTE | 2019-09-02 15:03 | CT ---
"PRELIMINARY REPORT" CTA of the head with IV contrast and 3-D reformatted imaging. CTA of the neck with IV contrast and 3-D reformatted imaging. INDICATION: Level 2 stroke; right-sided weakness and aphasia COMPARISON: CT the brain without contrast dated September 01, 2019 CTA of the head and neck dated 2016. FINDINGS: CTA OF THE HEAD WITH CONTRAST: CTA OF THE BRAIN: Right ICA: Patent. Right MCA: Patent. Right STERLING: Patent. ACOM: Patent. Left ICA: Patent. Left MCA: There is complete occlusion of the left M1 segment. There is reconstitution of flow seen a t the level of the distal left M2 segment from collaterals. There is well-formed collateralization in the left MCA distribution. Left STERLING: Patent. PCOMs: Patent. Vertebral arteries: Patent. Basilar Artery: Patent. acquisition advisor: Patent. Incidentals: No abnormal enhancement. CTA OF THE NECK WITH CONTRAST: Right CCA: Patent. Right ICA: Patent. Right Subclavian: Patent. Right Vertebral Artery: Patent. Left CCA: Patent. Left ICA: There is mild, less than 50% luminal caliber narrowing, involving the proximal left ICA. Left Subclavian: Patent. Left Vertebral Artery: The proximal origin and proximal segment of the left cervical vertebral arter y is limited due to venous contamination. The remaining course of the left cervical vertebral artery is patent. Aerodigestive tract: Clear. Parotids/Submandibular/Thyroid glands: Normal. Lymph nodes: No pathologically enlarged lymph nodes. Lung Apices: Mild paraseptal emphysema Bones: There is scattered degenerative and osteoarthritic change present. Chronic appearing wedge co mpression abnormalities C7-T1 these are stable to the prior CTA of the neck dated July 09, 2017 Incidentals: None. IMPRESSION: 1. Occlusive thrombus seen within the left M1 segment with reconstitution of flow within the distal l eft M2 segment via collaterals. Findings were called to Dr. Cabello at 7:58 PM on September 01, 2019. 2. Less than 50% luminal caliber narrowing involving the proximal left ICA due to partially calcified atherosclerotic plaque. Transcribed Date/Time: 09/02/2019 3:02 PM
[2019-09-02] MEDS: Atorvastatin Calcium 40 MG TAB PO SCH (21:09)
--- NOTE | 2019-09-03 09:10 | CT ---
Head CT without contrast 09/03/2019: COMPARISON: 09/02/2019 HISTORY: Evaluate brain following thrombectomy TECHNIQUE: Axial CT imaging at 5 mm intervals from vertex through skull base without contrast FINDINGS: Imaged paranasal sinuses/mastoid air cells well-aerated. Stable calvarial lytic lesion raffy uring 2.6 cm in the right frontal region, unchanged when compared to studies dating back to 07/09/2017. No intracranial hemorrhage, midline shift, or mass effect. A few small foci of hypodensit y noted within the periventricular white matter superior to the basal ganglia on the left, not discretely visualized on the 09/01/2019 examination, suggesting interval development of small lacunar infarctions. This could be better assessed via MRI if clinically warranted. IMPRESSION: No intracranial hemorrhage. Question small lacunar infarctions on the left.
[2019-09-03] MEDS: Aspirin 300 MG Suppository PR SCH (09:22)
[2019-09-03] MEDS: Aspirin 325 mg Enteric Coated Tablet PO SCH (09:25)
[2019-09-03] MEDS: Enoxaparin Sodium 30 MG/0.3 ML SYRINGE SC SCH (09:25)
[2019-09-03] MEDS: Famotidine/PF 20 mg/2ml Vial SLOW IVP SCH ×2 (09:26→21:05)
[2019-09-03 09:56] LABS: Hemoglobin 12.7 g/dL (14.0-18.0); Mean Corpuscular HGB CONC 33.9 g/dL (32.0-36.0); Mean Corpuscular Hemoglobin 30.4 pg (27.0-31.0); Mean Corpuscular Volume 89.6 fL (78.0-98.0); Mean Platelet Volume 9.4 fL (7.4-10.4); Platelet Count 165 thou/uL (130-400); RBC Distribution Width 13.5 % (11.5-14.5); Red Blood Cell (RBC) Count 4.19 mill/uL (4.70-6.10); White Blood Cell (WBC) Count 13.1 thou/uL (4.8-10.8)
--- NOTE | 2019-09-03 10:41 | CON ---
DATE OF CONSULTATION: 09/03/2019 Telemedicine Consultation CHIEF COMPLAINT: Acute stroke. HISTORY OF PRESENT ILLNESS: The patient is aphasic, therefore unable to give us medical history. His history was mostly obtained from the chart. The patient is a 64-year-old man who was brought by EMS after developing right-sided weakness and expressive aphasia, which started around 0545 yesterday in the evening. He was heating something in the microwave, was noted to have difficulty figuring out how to work the microwave and his right arm was hanging to the side and he also attempted to lift his arm, but it continued to drop to the side and they recognized the stroke symptoms and brought him immediately to the ER. On arrival, the patient had a CT of the head and a CT angio which showed occlusive thrombus in the left M1 segment and he had thrombectomy and clot retrieval procedure. He was seen by Dr. Bellamy as well yesterday and he completed the procedure for thrombectomy and this was performed yesterday night. Following thrombectomy, the patient remained stable. He is currently on the regular floor. He also underwent CT of the head this morning which was cleared and there was no evidence of any hemorrhage on the CT. CT showed question of small lacunar infarcts on the left, which I do think can occur with the MCA infarct and his echocardiogram was also reviewed and EF is at 55% to 60%. with grade 1/3 diastolic dysfunction. He had a mildly dilated left atrium and mild mitral regurgitation. He has a small pericardial effusion without tamponade. PAST MEDICAL HISTORY: He has atrial fibrillation. He has a pacemaker and is currently in paced rhythm and he also has diabetes and peripheral vascular disease. He has history of left about knee amputation as well and he has AICD in place. He had multiple compression fractures due to osteoporosis. He has hypertension. He has history of retinal hemorrhage in the left eye and depression. 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 Vascular surgery for the right leg as well. Multiple back surgeries. SOCIAL HISTORY: He lives with his . He uses a motorized chair. He is a former smoker. History of alcohol abuse, quit in 1999. ALLERGIES: ALLERGY TO MORPHINE, NO DETAILS NOTED IN THE CHART. FAMILY HISTORY: Unknown at this time, I am unable to obtain it from the patient due to his aphasia. CURRENT MEDICATIONS: He is on 1. Protonix. 2. Troy. 3. Centrum Silver. 4. Tamsulosin. 5. Celexa. 6. Simvastatin. 7. Diltiazem. 8. Furosemide. 9. Gabapentin. 10. Coreg. 11. Eliquis. 12. Restoril. LABORATORY DATA: White count 9.7, hemoglobin 12.5, hematocrit 37.6, platelet count 165. Sodium 141, potassium 3.7, chloride 108, bicarb 24, BUN 11, creatinine 1.04, glucose 105, calcium 9.1. Cholesterol profile is within normal limits. LDL 46, cholesterol 109, triglycerides 79, HDL 47. Heart disease risk ratio is 2.3. His CT angiogram was reviewed as well and he had complete occlusion of the left M1 segment and reconstitution of flow at the level of distal left M2 segment from collaterals. This is a well-formed collateralization in the left MCA distribution. He has occlusive thrombus in left M1 segment with reconstitution of flow. REVIEW OF SYSTEMS: Unobtainable from patient due to the aphasia. PHYSICAL EXAMINATION: VITAL SIGNS: Temperature 98.6, respiratory rate 20, pulse 76, O2 saturations 96%, blood pressure 159/84. GENERAL APPEARANCE: Well-built, well-nourished man, who is comfortable in bed. He seems very aphasic. CHEST: Clear vesicular breathing. CARDIOVASCULAR: S1, S2 heard. No murmurs. ABDOMEN: Soft, nontender. No organomegaly noted. NEURO: Motor bulk normal, tone normal. Strength is 4/5 in the right lower extremity, 3/5 in the proximal right upper extremity, 4/5 in the right hand. Left leg has below-knee amputation. On the left side, his strength was 5/5. On speech, aphasia. Cranial nerve examination 2 through 12 normal. Pupil is dilated and irregular on the left side. Right pupil is normal at 3 mm. Left pupil was 5 mm. No reaction to light on the left side. Preserved reaction to light on the right side. Normal extraocular movements. He had facial asymmetry on the right side. Normal hearing bilaterally. Tongue midline. Normal elevation of palate. Sensory examination normal on the right side and left side. Cerebellar unable to perform due to comprehension issues. Deep tendon reflexes were absent. IMPRESSION: The patient is a 64-year-old man with peripheral vascular disease and hypertension and cardiac disease risk factors and he presents to the ER with left M1 occlusion which was treated with thrombectomy. At this time, his examination shows aphasia, right facial droop and right-sided weakness as expected from this event. His CT is negative for hemorrhage in 24 hours and he is stable at this time. He has been out of Eliquis for history for a brief period and therefore I do think he might have had a stroke due to this factor alone. We stressed compliance with medication to the patient and for now the patient can continue his Eliquis. He can restart it along with aspirin for stroke prophylaxis and he can return to his bead wrapper. He will need inpatient rehab. Please consult Ryan Good ID: [id number]
[2019-09-03] MEDS ORDERED: Apixaban 5 MG TAB PO SCH (11:45)
--- NOTE | 2019-09-03 15:45 | CCL ---
DATE OF PROCEDURE: 09/01/19 SURGEON: Jasper Bellamy M.D. KAITARA TARAKA: None. INDICATION: MCA, left occlusion. PROCEDURE: Cerebral angiogram with mechanical thrombectomy. ANESTHESIA: General. TECHNIQUE: The patient is brought to the angiogram suite and placed on the table in the supine position. He was placed under general anesthesia. Both groins were prepped and draped in the usual sterile fashion. A 5 Armenian micropuncture set was used to gain access to the right common femoral artery. Using a Seldin jo technique, the needle was removed and an 8 Armenian sheath was placed. An 8 Armenian concentric guide catheter was passed over a 130 cm diagnostic catheter which was passed over a Bentzen guide wire was used to gain access to the left internal carotid artery. An AP and lateral angiogram was then perfor med which confirmed occlusion of the M1 branch of the left middle cerebral artery. A Trevo device was deployed after placing a microcatheter on the distal aspect of the clot. After a single Trevo there was anglican of blood flow with complete filling of all the expected vascular territory but with f illing slower than normal. The TICI score is 2B. All catheters were then removed. Hemostasis was main tained with mechanical compression. The procedure came to an end without known complication. IMPRESSION: The patient underwent successful mechanical thrombectomy with revascularization of the M1 branch of t he middle cerebral artery.
[2019-09-03] MEDS: Labetalol HCl 100 MG/20 ML VIAL SLOW IVP PRN (16:08)
--- NOTE | 2019-09-03 17:04 | PDOC.HOSPP ---
- Subjective Encounter Date: 09/03/19 Encounter Time: 15:00 Subjective: CC: f/u CVA The patient has no specific complaints. He has some weakness on his right side. Feels numb slightly on that side. No other headaches, nausea, vomiting Per , patient can understand what you're saying but has difficulty getting his words out. very concerned about his speech and wants his speech to improve before taking him home. I suggested that he would need rehab but states patient would not be interested in rehab and she would prefer to see if he can improve here so she can take him home also asked about reordering his BP medications - Objective Vital Signs & Weight: Vital Signs (12 hours) Temp Pulse Resp BP Pulse Ox 09/03/19 16:30 170/64 H 09/03/19 16:08 96 09/03/19 15:51 99.5 F 68 18 194/107 H 97 09/03/19 13:21 172/78 H 09/03/19 12:00 99.6 F 71 16 165/113 H 94 L 09/03/19 07:53 98.6 F 76 20 159/84 H 96 Weight Admit Weight 186 lb Weight 185 lb 6.4 oz Most Recent Monitor Data Heart Rate from ECG 71 NIBP 150/70 NIBP BP-Mean 96 Respiration from ECG 23 SpO2 97 I&O: 09/02/19 09/03/19 09/04/19 06:59 06:59 06:59 Intake Total 20 50 Output Total 505 625 Balance -505 -605 50 Result Diagrams: 09/03/19 09:47 09/02/19 05:36 Hospitalist ROS - Medication Medications: Active Medications Generic Name Dose Route Start Last Admin Trade Name Freq PRN Reason Stop Dose Admin Acetaminophen 650 mg 09/02/19 00:04 09/02/19 20:45 Tylenol IN 650 mg Q4H PRN Administration Headache/Fever/Mild Pain (1-3) Aspirin 325 mg 09/02/19 09:00 09/03/19 09:25 Ecotrin PO Not Given DAILY FREDDIE Aspirin 300 mg 09/02/19 09:00 09/03/19 09:22 Aspirin IN 300 mg DAILY FREDDIE Administration Atorvastatin Calcium 40 mg 09/02/19 21:00 09/02/19 21:09 Lipitor PO Not Given HS FREDDIE Famotidine 20 mg 09/02/19 09:00 09/03/19 09:26 Pepcid SLOW IVP 20 mg Q12HR FREDDIE Administration Labetalol HCl 10 mg 09/01/19 23:44 09/03/19 16:08 Normodyne SLOW IVP 10 mg Q10M PRN Administration SBP > 180 or DBP > 105 - Exam General Appearance: NAD, awake alert Eye: PERRL, anicteric sclera Eye - other findings: Dilated left eye due to retinal hemorrhage ENT: normocephalic atraumatic, no oropharyngeal lesions Neck: supple, no JVD Heart: RRR, no murmur, no gallops, no rubs Respiratory: CTAB, no wheezes, no rales, no ronchi Gastrointestinal: soft, non-tender, non-distended, normal bowel sounds Extremities: no cyanosis, no edema Extremities - other findings: left leg below the knee amputation Skin: normal turgor, no lesions, no rashes Neurological: cranial nerve grossly intact, normal sensation to touch, no focal deficits, no new deficit Neurological - other findings: RUE 3/5, RLE 4/5. LUE 5/5. LLE 5/5 . He has dysarthria Musculoskeletal: normal tone, normal strength, no muscle wasting Psychiatric: normal affect, normal behavior, A&O x 3, oriented to person Hosp A/P - Plan CT brain 09/03: no intracranial hemorrhage. Small lacunar infarctions on the left CT brain 09/02: no acute hemorrhage CTA: complete occlusion of the left M1 segment This is 64 year old male who presented with right upper extremity weakness and expressive aphasia , found to have left M1 occlusion s/p thrombectomy #Acute CVA with left M1 occlusion s/p thrombectomy #continue aspirin, eliquis. CT shows lacunar infarction on the left and complete occlusion of left M1 segment. She is s/p thrombectomy - neuro consulted. Patient needs inpatient rehab, per she does not think the patient is interested #Peripheral vascular disease #Afib s/p pacemaker #Retinal hemorrhage left eye #Hypertension - will resume coreg 25 mg bid. Resume other BP medications slowly - continue aspirin and eliquis DVT prophylaxis: eliquis Code status: full code
[2019-09-03] MEDS: Acetaminophen 325 MG TAB PO PRN ×2 (17:24→21:06)
[2019-09-03] MEDS: Carvedilol 25 MG TAB PO SCH (21:05)
[2019-09-03] MEDS: Atorvastatin Calcium 40 MG TAB PO SCH (21:05)
[2019-09-03] MEDS: Apixaban 5 MG TAB PO SCH (21:05)
[2019-09-04] MEDS ORDERED: Loperamide HCl 2 MG CAP PO PRN (03:09)
[2019-09-04] MEDS: traMADol HCl 50 MG TAB PO PRN ×2 (03:42→17:09)
[2019-09-04 04:22] LABS: Hemoglobin 12.3 g/dL (14.0-18.0); Mean Corpuscular Hemoglobin 30.5 pg (27.0-31.0); Mean Corpuscular Volume 89.7 fL (78.0-98.0); Mean Platelet Volume 9.1 fL (7.4-10.4); Platelet Count 152 thou/uL (130-400); RBC Distribution Width 13.4 % (11.5-14.5); Red Blood Cell (RBC) Count 4.02 mill/uL (4.70-6.10); White Blood Cell (WBC) Count 15.4 thou/uL (4.8-10.8)
[2019-09-04] MEDS: Famotidine/PF 20 mg/2ml Vial SLOW IVP SCH ×2 (08:41→21:02)
[2019-09-04] MEDS: Carvedilol 25 MG TAB PO SCH ×2 (08:42→21:02)
[2019-09-04] MEDS: Apixaban 5 MG TAB PO SCH ×2 (08:42→21:02)
[2019-09-04] MEDS: Aspirin 300 MG Suppository PR SCH (08:42)
[2019-09-04] MEDS: Nystatin Powder 15 GM BOT TOP SCH ×2 (08:43→21:03)
[2019-09-04] MEDS: Aspirin 325 mg Enteric Coated Tablet PO SCH (09:50)
[2019-09-04] MEDS: Aspirin 81 mg Enteric Coated Tablet PO SCH (10:00)
[2019-09-04] MEDS ORDERED: Diltiazem HCl SR 90 mg Capsule PO SCH (11:45)
--- NOTE | 2019-09-04 12:41 | PDOC.HOSPP ---
- Subjective Encounter Date: 09/04/19 Encounter Time: 11:00 Subjective: The patient has no complaints. He still has expressive aphasia. Hasn't been seen by speech yet today. Per , patient was ambulating with crutches and driving with his amputation. She wants to see if he can improve before sending him to rehab Patient denies cough or congestion. - Objective Vital Signs & Weight: Vital Signs (12 hours) Temp Pulse Resp BP BP Pulse Ox 09/04/19 11:25 99.7 F H 70 18 183/89 H 95 09/04/19 10:09 145/69 H 09/04/19 07:50 99.1 F 70 20 177/104 H 96 09/04/19 04:00 97.5 F L 68 16 159/74 H 93 L Weight Admit Weight 186 lb Weight 187 lb Most Recent Monitor Data Heart Rate from ECG 71 NIBP 150/70 NIBP BP-Mean 96 Respiration from ECG 23 SpO2 97 I&O: 09/03/19 09/04/19 09/05/19 06:59 06:59 06:59 Intake Total 20 510 340 Output Total 625 230 Balance -605 280 340 Result Diagrams: 09/04/19 04:12 09/02/19 05:36 Hospitalist ROS - Review of Systems Constitutional: denies: fever, chills - Medication Medications: Active Medications Generic Name Dose Route Start Last Admin Trade Name Freq PRN Reason Stop Dose Admin Acetaminophen 650 mg 09/02/19 00:04 09/03/19 21:06 Tylenol PO 650 mg Q4H PRN Administration Headache/Fever/Mild Pain (1-3) Acetaminophen 650 mg 09/02/19 00:04 09/02/19 20:45 Tylenol [place] 650 mg Q4H PRN Administration Headache/Fever/Mild Pain (1-3) Apixaban 5 mg 09/03/19 21:00 09/04/19 08:42 Eliquis PO 5 mg BID FREDDIE Administration Aspirin 81 mg 09/04/19 09:00 09/04/19 10:00 Ecotrin PO 81 mg DAILY FREDDIE Administration Atorvastatin Calcium 40 mg 09/02/19 21:00 09/03/19 21:05 Lipitor PO 40 mg HS FREDDIE Administration Carvedilol 25 mg 09/03/19 21:00 09/04/19 08:42 Coreg PO 25 mg BID FREDDIE Administration Diltiazem HCl 90 mg 09/04/19 11:45 09/04/19 12:23 Cardizem Sr PO 09/04/19 13:45 90 mg NOW FREDDIE Administration Famotidine 20 mg 09/02/19 09:00 09/04/19 08:41 Pepcid SLOW IVP 20 mg Q12HR FREDDIE Administration Labetalol HCl 10 mg 09/01/19 23:44 09/03/19 16:08 Normodyne SLOW IVP 10 mg Q10M PRN Administration SBP > 180 or DBP > 105 Loperamide HCl 2 mg 09/04/19 03:09 09/04/19 03:42 Imodium PO 2 mg PRN PRN Administration Diarrhea/Loose Stools Nystatin 0 gm 09/04/19 09:00 09/04/19 08:43 Mycostatin Powder TOP 1 applic BID FREDDIE Administration Sodium Chloride 10 ml 09/02/19 00:04 09/04/19 08:42 Flush - Normal Saline IVF 10 ml Q12HR PRN Administration Saline Flush Tramadol HCl 50 mg 09/04/19 03:09 09/04/19 03:42 Ultram PO 09/06/19 03:10 50 mg Q6H PRN Administration Moderate Pain (4-6) - Exam General Appearance: NAD, awake alert Eye: PERRL, anicteric sclera ENT: normocephalic atraumatic, no oropharyngeal lesions Neck: no JVD Heart: RRR, no murmur, no gallops, no rubs Respiratory: CTAB, no wheezes, no rales, no ronchi Gastrointestinal: soft, non-tender, non-distended, normal bowel sounds Extremities: no cyanosis, no clubbing, no edema Skin: normal turgor, no lesions, no rashes Neurological: cranial nerve grossly intact, normal sensation to touch, no new deficit, speech deficit Neurological - other findings: expressive aphasia Musculoskeletal: normal tone, normal strength, no muscle wasting Psychiatric: normal affect, normal behavior, A&O x 3, oriented to person Hosp A/P - Plan CT brain 09/03: no intracranial hemorrhage. Small lacunar infarctions on the left CT brain 09/02: no acute hemorrhage CTA: complete occlusion of the left M1 segment This is 64 year old male who presented with right upper extremity weakness and expressive aphasia , found to have left M1 occlusion s/p thrombectomy #Acute CVA with left M1 occlusion s/p thrombectomy #continue aspirin, eliquis. CT shows lacunar infarction on the left and complete occlusion of left M1 segment. She is s/p thrombectomy - neuro consulted. Patient needs inpatient rehab, per she does not think the patient is interested - will do robbins voiding trial #Wheezing - noted on exam today. Check chest X ray #Dysphagia - speech following on NDD1 pureed diet - modified barium swallow tomorrow, keep NPO after midnight #Peripheral vascular disease #Afib s/p pacemaker #Retinal hemorrhage left eye #Hypertension - resumed coreg 25 mg bid. Will resume diltiazem today - continue aspirin and eliquis DVT prophylaxis: eliquis Code status: full code
--- NOTE | 2019-09-04 19:06 | RAD ---
FRONTAL RADIOGRAPH CHEST: Date: 09-04-2019 Comparison: 04-20-18 History: Course lung sounds. FINDINGS: Stable heart and mediastinal contours. Stable multi-led AICD. No focal consolidation or alveolar erasmo a. IMPRESSION: No significant interval change. POS: LUTHER
[2019-09-04] MEDS: Atorvastatin Calcium 40 MG TAB PO SCH (21:02)
[2019-09-04] MEDS ORDERED: Sodium Chloride 0.9% 500 ML IV SCH (23:30)
[2019-09-05] MEDS ORDERED: Sodium Chloride 0.9% 500 ML IV SCH (04:30)
[2019-09-05 04:52] LABS: Hemoglobin 12.1 g/dL (14.0-18.0); Mean Corpuscular HGB CONC 33.2 g/dL (32.0-36.0); Mean Corpuscular Hemoglobin 29.6 pg (27.0-31.0); Mean Corpuscular Volume 89.2 fL (78.0-98.0); Mean Platelet Volume 9.7 fL (7.4-10.4); Platelet Count 145 thou/uL (130-400); RBC Distribution Width 13.4 % (11.5-14.5); Red Blood Cell (RBC) Count 4.07 mill/uL (4.70-6.10); White Blood Cell (WBC) Count 10.3 thou/uL (4.8-10.8)
[2019-09-05 05:00] LABS: Anion Gap 12 mmol/L (10-20); BUN (Urea Nitrogen) 11 mg/dL (8.4-25.7); Calc. Creatinine Clearance 118 mL/min (70-130); Calcium 9.2 mg/dL (7.8-10.44); Carbon Dioxide 23 mmol/L (23-31); Chloride 112 mmol/L (98-107); Estimated GFR-MDRD Greater than 90; Glucose 97 mg/dL (80-115); Sodium 144 mmol/L (136-145)
[2019-09-05 05:05] LABS: Potassium 2.9 mmol/L (3.5-5.1)
[2019-09-05] MEDS ORDERED: Potassium Chloride 40 MEQ in Sodium Chloride 0.9% 250 ML 250 ML IVPB SCH ×2 (05:30→05:45)
[2019-09-05] MEDS: Labetalol HCl 100 MG/20 ML VIAL SLOW IVP PRN (08:49)
[2019-09-05] MEDS ORDERED: Diltiazem HCl SR 90 mg Capsule PO SCH (09:00)
[2019-09-05] MEDS ORDERED: DILTIAZEM HCL 90 MG PO SCH (09:00)
[2019-09-05] MEDS: Carvedilol 25 MG TAB PO SCH ×3 (09:23→21:42)
[2019-09-05] MEDS ORDERED: Furosemide 20 MG TAB PO SCH (09:30)
[2019-09-05] MEDS: Apixaban 5 MG TAB PO SCH ×2 (09:40→21:42)
[2019-09-05] MEDS: Famotidine/PF 20 mg/2ml Vial SLOW IVP SCH ×2 (09:40→21:42)
[2019-09-05] MEDS: Aspirin 81 mg Enteric Coated Tablet PO SCH (09:43)
--- NOTE | 2019-09-05 12:07 | PQF ---
DATE: 09-05-19 ATTN: DR. EDWARD FORRESTER Please exercise your independent, professional judgment in responding to the clarification form. Clinical indicators are provided on the bottom of this form for your review Please check appropriate box(s): [ ] Encephalopathy: Type: [x ] Acute [ ] Subacute [ ] Chronic Etiology: [ ] Metabolic [ ] Toxic [ x ] Other (please specify) ischemic [ ] Transient Alteration of Awareness [ ] Other diagnosis [ ] Unable to determine In addition, please specify: Present on Admission (POA): [x ] Yes [ ] No [ ] Unable to determine For continuity of documentation, please document condition throughout progress notes and discharge summary. Thank You. CLINICAL INDICATORS - SIGNS / SYMPTOMS / LABS / RESULTS AND LOCATION IN EMR: ER DX 09-01-19 : CVA H&P 09-01-19: HE DID NOT ANSWER ANY QUESTIONS APPROPRIATELY AND APPEARED TO BE CONFUSED. APPEARS TO BE ENCEPHALOPATHIC WITH THE ABILITY TO FOLLOW SOME COMMANDS, BUT DOES NOT SEEM TO HAVE COMPLETE COMPREHENSION. H&P 09-01-19: ACUTE CVA WITH LEFT M1 OCCLUSION S/P THROMBECTOMY RISK FACTORS / RESULTS AND LOCATION IN EMR: H&P 09-01-19: ACUTE CVA WITH LEFT M1 OCCLUSION S/P THROMBECTOMY, HTN, RETINAL HEMORRHAGE L EYE TREATMENTS / RESULTS AND LOCATION IN EMR: H&P 09-01-19: CT BRAIN 09-02 AND 09-03, CTA NEURO CONSULT 09-03-19 (This form is maintained as a part of the permanent medical record) 2014 [employer]. All Rights Reserved [email or web address] [email or web address] Office: [phone] [email or web address]
[2019-09-05 12:09] LABS: Potassium 3.4 mmol/L (3.5-5.1)
[2019-09-05 14:22] VITALS: BMI 25.4
[2019-09-05] MEDS ORDERED: Potassium Chloride 20 MEQ TAB PO SCH (14:30)
--- NOTE | 2019-09-05 15:28 | RAD ---
MODIFIED BARIUM SWALLOW PERFORMED WITH SPEECH THERAPIST: Date: 09/05/2019 HISTORY: Dysphagia, status post stroke. FINDINGS: The patient was given a variety of materials from thin liquid to also include honey and nectar-thick liquid by spoon and straw. On the initial thin liquid, there is questionable minimal aspiration. This would be reviewed by the speech therapist on the recording. There was penetration demonstrated with the nectar by straw and spoon. There is some residual in the posterior tongue region after swallowing . IMPRESSION: Findings as noted above. POS: AYANA
[2019-09-05] MEDS ORDERED: Tamsulosin HCl 0.4 MG CAP PO SCH (16:00)
[2019-09-05] MEDS: Nystatin Powder 15 GM BOT TOP SCH ×2 (16:31→21:44)
--- NOTE | 2019-09-05 17:38 | PDOC.HOSPP ---
- Subjective Encounter Date: 09/05/19 Encounter Time: 11:30 Subjective: CVA: The patient is doing better per . Speech has improved. He has no complaints. Speech recommending continuing current diet due to barium swallow showing aspiration Urinary retention: He had his robbins catheter removed. He had 650 retained in his bladder. He takes flomax at home, per it worked miracles for him in tihe past. Hypokalemia : Potassium 2.9 today, given replacement this am. Repeat 3.4, given another 40 meq potassium HTN: patient was unable to get diltiazem this am since it could not be crushed. Per pharmacy, change to 30 mg tid - Objective Vital Signs & Weight: Vital Signs (12 hours) Temp Pulse Pulse Pulse Resp BP BP 09/05/19 15:21 98.7 F 70 20 09/05/19 11:23 97.8 F 70 20 09/05/19 09:09 80 70 152/84 H 170/88 H 09/05/19 07:10 99.0 F 71 16 BP BP Pulse Ox 09/05/19 15:21 188/94 H 97 09/05/19 11:23 167/83 H 97 09/05/19 09:09 09/05/19 07:10 184/94 H 97 Weight Admit Weight 186 lb Weight 182 lb 9.6 oz Most Recent Monitor Data Heart Rate from ECG 71 NIBP 150/70 NIBP BP-Mean 96 Respiration from ECG 23 SpO2 97 I&O: 09/04/19 09/05/19 09/06/19 06:59 06:59 06:59 Intake Total 510 700 118 Output Total 230 360 Balance 280 340 118 Result Diagrams: 09/05/19 04:20 09/05/19 10:45 Hospitalist ROS - Medication Medications: Active Medications Generic Name Dose Route Start Last Admin Trade Name Freq PRN Reason Stop Dose Admin Acetaminophen 650 mg 09/02/19 00:04 09/03/19 21:06 Tylenol PO 650 mg Q4H PRN Administration Headache/Fever/Mild Pain (1-3) Acetaminophen 650 mg 09/02/19 00:04 09/02/19 20:45 Tylenol [place] 650 mg Q4H PRN Administration Headache/Fever/Mild Pain (1-3) Apixaban 5 mg 09/03/19 21:00 09/05/19 09:40 Eliquis PO 5 mg BID FREDDIE Administration Aspirin 81 mg 09/04/19 09:00 09/05/19 09:43 Ecotrin PO 81 mg DAILY FREDDIE Administration Atorvastatin Calcium 40 mg 09/02/19 21:00 09/04/19 21:02 Lipitor PO 40 mg HS FREDDIE Administration Carvedilol 37.5 mg 09/05/19 09:00 09/05/19 09:41 Coreg PO 37.5 mg BID FREDDIE Administration Famotidine 20 mg 09/02/19 09:00 09/05/19 09:40 Pepcid SLOW IVP 20 mg Q12HR FREDDIE Administration Labetalol HCl 10 mg 09/01/19 23:44 09/05/19 08:49 Normodyne SLOW IVP 10 mg Q10M PRN Administration SBP > 180 or DBP > 105 Loperamide HCl 2 mg 09/04/19 03:09 09/04/19 03:42 Imodium PO 2 mg PRN PRN Administration Diarrhea/Loose Stools Nystatin 0 gm 09/04/19 09:00 09/05/19 16:31 Mycostatin Powder TOP 1 applic BID FREDDIE Administration Sodium Chloride 10 ml 09/02/19 00:04 09/04/19 21:03 Flush - Normal Saline IVF 10 ml Q12HR PRN Administration Saline Flush Sodium Chloride 10 ml 09/02/19 00:04 09/05/19 00:30 Flush - Normal Saline IVF 10 ml PRN PRN Administration Saline Flush Tamsulosin HCl 0.4 mg 09/05/19 16:00 09/05/19 16:30 Flomax PO 09/05/19 18:00 0.4 mg NOW FREDDIE Administration Tramadol HCl 50 mg 09/04/19 03:09 09/04/19 17:09 Ultram PO 09/06/19 03:10 50 mg Q6H PRN Administration Moderate Pain (4-6) - Exam General Appearance: NAD, awake alert Eye: PERRL, anicteric sclera ENT: normocephalic atraumatic, no oropharyngeal lesions Neck: no JVD Heart: RRR, no murmur, no gallops, no rubs Respiratory: CTAB, no wheezes, no rales, no ronchi Gastrointestinal: soft, non-tender, non-distended Extremities: no edema Skin: normal turgor, no lesions, no rashes Musculoskeletal - other findings: RUE 4/5, RLE 4/5, LUE 5/5, LLE 5/5 Hosp A/P - Plan CT brain 09/03: no intracranial hemorrhage. Small lacunar infarctions on the left CT brain 09/02: no acute hemorrhage CTA: complete occlusion of the left M1 segment Chest X ray 09/04: no edema This is 64 year old male who presented with right upper extremity weakness and expressive aphasia , found to have left M1 occlusion s/p thrombectomy #Acute CVA with left M1 occlusion s/p thrombectomy #continue aspirin, eliquis. CT shows lacunar infarction on the left and complete occlusion of left M1 segment. She is s/p thrombectomy - neuro consulted. Patient needs inpatient rehab - continue PT and OT #Hypokalemia - potassium 3.4, given 40 meq potassium. Repeat BMP tomorrow #Hypertension - increase coreg to 37.5 mg bid which is home dose - resume diltiazem at 30 mg TID since cannot give 90 mg since pill can't be crushed - can resume lasix when potassium improves #Wheezing - resolved, chest Xray normal #Dysphagia - speech following on NDD1 pureed diet - modified barium swallow tomorrow, keep NPO after midnight #Peripheral vascular disease #Afib s/p pacemaker #Retinal hemorrhage left eye - continue aspirin and eliquis DVT prophylaxis: eliquis Code status: full code
[2019-09-05] MEDS: Atorvastatin Calcium 40 MG TAB PO SCH (21:42)
[2019-09-06 04:54] LABS: Mean Corpuscular HGB CONC 33.7 g/dL (32.0-36.0); Mean Corpuscular Hemoglobin 30.3 pg (27.0-31.0); Mean Corpuscular Volume 89.9 fL (78.0-98.0); Mean Platelet Volume 9.6 fL (7.4-10.4); Platelet Count 139 thou/uL (130-400); RBC Distribution Width 13.4 % (11.5-14.5); Red Blood Cell (RBC) Count 3.96 mill/uL (4.70-6.10); White Blood Cell (WBC) Count 9.8 thou/uL (4.8-10.8)
[2019-09-06 05:25] LABS: Anion Gap 14 mmol/L (10-20); BUN (Urea Nitrogen) 11 mg/dL (8.4-25.7); Calc. Creatinine Clearance 109 mL/min (70-130); Carbon Dioxide 21 mmol/L (23-31); Chloride 112 mmol/L (98-107); Estimated GFR-MDRD Greater than 90; Glucose 100 mg/dL (80-115); Potassium 3.6 mmol/L (3.5-5.1); Sodium 143 mmol/L (136-145)
[2019-09-06] MEDS: Apixaban 5 MG TAB PO SCH (08:55)
[2019-09-06] MEDS: Carvedilol 25 MG TAB PO SCH (08:55)
[2019-09-06] MEDS: Aspirin 81 mg Enteric Coated Tablet PO SCH (08:56)
[2019-09-06] MEDS: Famotidine/PF 20 mg/2ml Vial SLOW IVP SCH (08:56)
[2019-09-06] MEDS: Nystatin Powder 15 GM BOT TOP SCH (08:57)
[2019-09-06] MEDS ORDERED: Tamsulosin HCl 0.4 MG CAP PO SCH (09:00)
[2019-09-06] MEDS ORDERED: Potassium Chloride 20 MEQ TAB PO SCH (10:40)
[2019-09-06] MEDS ORDERED: Furosemide 40 MG TAB PO SCH ×2 (10:45→14:00)
[2019-09-06 15:52] VITALS: BP 143/70; TEMP 97.7
--- NOTE | 2019-09-06 18:50 | DIS ---
DATE OF ADMISSION: 09/01/2019 DATE OF DISCHARGE: 09/06/2019 DISCHARGE DIAGNOSES: Acute cerebrovascular accident with left M1 occlusion, status post thrombectomy, hypokalemia, hypertension, dysphagia, leukocytosis, anemia. SECONDARY DISCHARGE DIAGNOSES: Peripheral vascular disease, atrial fibrillation , status post pacemaker, retinal hemorrhage of the left eye. CONSULTATIONS: Neurosurgery with Dr. Jasper Bellamy; Katrina Meade MD, with Neurology. PROCEDURES: Mechanical thrombectomy on 09/02/2019. BRIEF HISTORY OF PRESENT ILLNESS: This is a 64-year-old male with a past medical history of atrial fibrillation, hypertension, who had presented to the emergency room with right upper extremity weakness and expressive aphasia. The patient presented to the emergency room and had a CT scan of his head, which showed no acute abnormality. CTA of his head and neck revealed an occlusive thrombus in the left M1 segment with reconstitution of flow within the distal left M2 segment. The patient was not a candidate for tPA. The patient was admitted to the emergency room for further workup. Acute CVA with left M1 occlusion, status post thrombectomy: The patient underwent mechanical thrombectomy on 09/02. Repeat CT scan of his head on 09/02 showed no acute hemorrhage. The patient was seen by Neurology who recommended that he continue with aspirin and Eliquis. The patient had an echocardiogram done, which showed an EF of 55% to 60%, small pericardial effusion without any thrombus. The patient was seen by Physical Therapy and Occupational Therapy and was thought to need inpatient rehab. On the day of discharge, the patient's speech seemed to be improving and he did have some persistent weakness on the right upper extremity and lower extremity at 4/5. He was seen by Case Management and was discharged to [facility] for rehab. Urinary retention: The patient had a brief episode of urinary retention during the hospitalization requiring a Dumont catheter. The patient's Dumont catheter was removed and he was restarted on Flomax, and the patient has been able to void ever since. Hypertension: The patient was taking Lasix 40 mg b.i.d. at home and diltiazem 90 mg daily. Initially, his blood pressure medications were held for permissive hypertension. They were gradually restarted. He was resumed on his home Lasix and home Coreg with adequate control of his blood pressure. However, his diltiazem was switched to 30 mg t.i.d. since the 90 mg tablet was not able to be crushed with his food. He should follow up with his PCP in a week for further reassessment of his blood pressure. Dysphagia: The patient had speech consultation done and they recommended a NDD1 pureed diet. The patient underwent a modified barium swallow on 09/05, which showed minimal aspiration. Speech recommended that the patient continue with the pureed diet on discharge. The patient needs continued speech therapy upon discharge as an outpatient. Hypokalemia: The patient did have a low potassium of 2.9 on 09/05. He is given replacement and his potassium improved to 3.6 on the . He was resumed on Lasix and potassium supplements on discharge. DISCHARGE PHYSICAL EXAMINATION: VITAL SIGNS: Temperature 97.7, heart rate 76, respiratory rate 21, O2 saturation 96% on room air, and blood pressure 143/70. GENERAL: The patient is alert, awake, oriented x3. Neuro: The patient's cranial nerves 2 through 12 are intact. He has a retinal hemorrhage in his left eye and is blind in that eye. Left eye is not reactive to light. The patient has a mild facial droop. Does have mild dysarthria, which is improved. He has 4/5 strength in his right upper extremity and his right lower extremity and 5/5 strength in his left upper extremity and left lower extremity. Sensation is intact in all 4 extremities. CVS: Regular rate and rhythm with no murmurs, rubs, or gallops. LUNGS: Clear to auscultation bilaterally. ABDOMEN: Positive bowel sounds, soft, nontender, nondistended. EXTREMITIES: No edema. SKIN: No rashes. PERTINENT LABORATORY DATA: CBC on 09/06: Hemoglobin 12.0, hematocrit 35. BMP on 09/06: Unremarkable except for chloride of 112. Lipid panel: TAG 79, cholesterol 109, LDL 46, HDL 47. LFTs on 09/01: Normal. Magnesium: 2.0. PERTINENT IMAGING: CT brain on 09/01: Shows no acute abnormality. CTA on 09/01: Occlusive thrombus seen within the left M1 segment with reconstitution of flow within the distal left M2 segment via collaterals. Less than 50% luminal caliber narrowing involving the proximal left ICA due to partially calcified atherosclerotic plaque. CT brain on 08/23: No acute disease. CT brain on 09/03: No intracranial hemorrhage. Small lacunar infarctions on the left. Chest x-ray on 09/04: No significant interval change. DISCHARGE CONDITION: Stable. ACTIVITY: As tolerated. DIET: Heart healthy diet. DISCHARGE INSTRUCTIONS: The patient should follow up with his PCP in a week. The patient will be contacted by Dr. Bellamy with regard to followup appointment in his clinic. He should be resumed on all his home medications. His diltiazem was switched to 30 mg p.o. t.i.d. Job ID: [id number] [facility]
[2019-09-06] MEDS ORDERED: Famotidine 20 MG TAB PO SCH (21:00)
[2019-09-07] MEDS ORDERED: Potassium Chloride 20 MEQ TAB PO SCH (09:00)
--- NOTE | 2019-09-08 16:46 | EKG ---
Test Reason : Blood Pressure : / mmHG Vent. Rate : 070 BPM Atrial Rate : 070 BPM P-R Int : 000 ms QRS Dur : 178 ms QT Int : 494 ms P-R-T Axes : 000 -46 155 degrees QTc Int : 533 ms AV dual-paced rhythm Abnormal ECG Confirmed by STAR MOREL DO ([id number]), publication editor GABRIEL LOPEZ ([id number]) on 09/08/2019 4:46:38 PM Referred By: Confirmed By:STAR MOREL DO
== END 2019-09-06 17:30 | disposition swing bed (61) | DRG 24 ==
LOC: ERS 19:24 → CCU 23:01 → SDC/OP 23:07 → CCU 23:35 → 2SE 09-02 15:04
PROVIDERS: ADMIT Internal Medicine; ATTEND Internal Medicine
PROC: 03CG3Z7 Extirpation of Matter from Intracranial Artery using Stent Retriever, Percutaneous Approach (ICD-10-PCS; principal; 2019-09-01)
PROC: B31R1ZZ Fluoroscopy of Intracranial Arteries using Low Osmolar Contrast (ICD-10-PCS; 2019-09-01)
PROC: 3E02340 Introduction of Influenza Vaccine into Muscle, Percutaneous Approach (ICD-10-PCS; 2019-09-02)
PROC: 3E0234Z Introduction of Serum, Toxoid and Vaccine into Muscle, Percutaneous Approach (ICD-10-PCS; 2019-09-02)
DX: I63.512 Cerebral infarction due to unspecified occlusion or stenosis of left middle cerebral artery (principal); G81.91 Hemiplegia, unspecified affecting right dominant side; G93.49 Other encephalopathy; I31.3 Pericardial effusion (noninflammatory); I48.20 Chronic atrial fibrillation, unspecified; H35.62 Retinal hemorrhage, left eye; E11.51 Type 2 diabetes mellitus with diabetic peripheral angiopathy without gangrene; I10 Essential (primary) hypertension; I48.0 Paroxysmal atrial fibrillation; M81.0 Age-related osteoporosis without current pathological fracture; R13.10 Dysphagia, unspecified; R29.810 Facial weakness; R40.2363 Coma scale, best motor response, obeys commands, at hospital admission; R40.2143 Coma scale, eyes open, spontaneous, at hospital admission; R40.2233 Coma scale, best verbal response, inappropriate words, at hospital admission; R47.01 Aphasia; E87.6 Hypokalemia; R06.2 Wheezing; R33.9 Retention of urine, unspecified; Z89.612 Acquired absence of left leg above knee; Z95.810 Presence of automatic (implantable) cardiac defibrillator; Z88.5 Allergy status to narcotic agent; Z79.01 Long term (current) use of anticoagulants; Z79.899 Other long term (current) drug therapy; Z23 Encounter for immunization
CPT/HCPCS: 36415; 36416; 37184; 70450; 70496; 70498; 71045; 74230; 80048; 80053; 80061; 83735; 84484; 85025; 85027; 85610; 85730; 87324; 87449; 90471; 90662; 93005; 93306; C1757; C1887; G0008; J1644; J1650; J2001; J2704; J3010; J3480; J7050; Q9967; S0028